=== PATIENT | female | born 1980 | race Caucasian/White ===

== ENCOUNTER 2018-11-03 10:31 | Inpatient (IN) ==
--- NOTE | 2018-11-03 10:46 | Emergency Department Note ---
ED Disposition Clinical Impression: Upper abdominal pain, Elevated liver enzymes, Dehydration Leukocytosis Qualifiers: Leukocytosis type: unspecified Qualified Code(s): D72.829 - Elevated white blood cell count, unspecified Disposition: Still a Patient Condition on Discharge: Good Referrals: Jb Gonzales MD [Primary Care Provider] - - Critical Care Critical Care Time: No Attestation: On , the high probability of a clinically significant, sudden or life threatening deterioration of the following system(s) required my full and direct attention, intervention and personal management. The time I documented below is in addition to time spent performing reported procedures but includes the following listed in this critical care notation. Medical Decision Making - Zach Inquiry Pt receiving controlled substance: Yes Zach was queried for this patient: Yes Reference #:: [id number] Risks and benefits of using a controlled substance: were not discussed with pt by me (on opiates chronically) Comment: 46 rxs. last rx 90 oxycodone 15mg on 10/24/18 Vital Signs: 11/03/18 10:40 Temperature 98.1 F Temperature Source Oral Pulse Rate [Left Radial] 112 H Respiratory Rate 20 Blood Pressure [Right Arm] 129/76 Blood Pressure Mean [Right Arm] 93 Blood Pressure Source [Right Arm] Automatic Cuff Blood Pressure Position [Right Arm] Sitting 02 Sat by Pulse Oximetry 98 Oxygen Delivery Method Room Air - Lab Data Lab Results 11/03/18 10:50: Urine Color [place], Urine Appearance Clear, Urine pH 6.5, Ur Specific [place] >= 1.030, Urine Protein 1+, Urine Glucose (UA) Negative, Urine Ketones Trace, Urine Blood Negative, Urine Nitrate Negative, Urine Bilirubin 2+ A, Urine Urobilinogen 2.0, Ur Leukocyte Esterase Negative, Urine RBC None, Urine WBC Occasional, Ur Squamous Epith Cells 3-5, Urine Bacteria 1+ 11/03/18 10:50: Urine Opiates Screen Positive H, Urine Methadone Screen Negative, Ur Barbituates Screen Negative, Ur Phencyclidine Scrn Negative, Ur Amphetamines Screen Negative, U Benzodiazepines Scrn Negative, Urine Cocaine Screen Negative, U Marijuana (THC) Screen Negative 11/03/18 11:00: WBC 17.6 H, RBC 4.47, Hgb 14.1, Hct 44.7, MCV 100.0 H, MCH 31.4 H, MCHC 31.4 L, RDW 15.2, Plt Count 269, MPV 10.0, Neut % (Auto) 78.0, Lymph % (Auto) 18.3, [place] % (Auto) 2.5, Eos % (Auto) 0.7, Baso % (Auto) 0.5, Neut # (Auto) 13.7 H, Lymph # (Auto) 3.2, [place] # (Auto) 0.4, Eos # (Auto) 0.1, Baso # (Auto) 0.1, Total Counted 100, Neutrophils % (Manual) 81 H, Lymphocytes % (Manual) 18, Monocytes % (Manual) 1 L, Platelet Estimate Normal, Macrocytosis 1+ 11/03/18 11:00: Sodium 140, Potassium 3.5, Chloride 106, Carbon Dioxide 20 L, Anion Gap 17.5 H, BUN 25 H, Creatinine 0.98, Estimated Creat Clear 58, Estimated GFR 65, Est GFR ( Amer) 78, Glucose 107 H, Calcium 8.2 L, Total Bilirubin 1.0, AST 287 H, ALT 297 H, Alkaline Phosphatase 90, Total Protein 7.5, Albumin 3.7, Globulin 3.8 H, Albumin/Globulin Ratio 1.0 L, Amylase 23 L, Lipase 98, T otal Valproic Acid 45.3 L Result diagrams: 11/03/18 11:00 11/03/18 11:00 Orders (Tests/Meds): ED MEDICATIONS Generic Name Dose Route Start Last Admin Trade Name Freq PRN Reason Stop Dose Admin Sodium Chloride 10 ml 11/03/18 10:46 Saline Flush 10ml Syringe IV 12/03/18 10:45 NEEDED PRN Maintain IV Site Discontinued Medications Generic Name Dose Route Start Last Admin Trade Name Freq PRN Reason Stop Dose Admin Morphine Sulfate 4 mg 11/03/18 13:09 Morphine 4mg/Ml Syringe IV 11/03/18 13:10 ONCE ONE Ondansetron HCl 4 mg 11/03/18 12:50 11/03/18 12:51 Zofran 4mg/2ml Vial IV 11/03/18 12:51 4 mg ONCE ONE Administration Promethazine HCl 12.5 mg 11/03/18 13:09 Phenergan 25mg/Ml 1ml Vial IV 11/03/18 13:10 ONCE ONE Sodium Chloride 1,000 ml 11/03/18 13:00 11/03/18 13:05 Sod Chlor 0.9% 1000ml Bag IV 11/03/18 13:01 1,000 ml BOLUS ONE Administration Sodium Chloride 25 ml 11/03/18 13:09 Sod Chlor 0.9% 25ml Bag IV 11/03/18 13:10 ONCE ONE ORDERS Category Date Time Status US gallbladder Stat Exams 11/03/18 11:12 Taken Hepatitis Panel (4) Routine Lab 11/03/18 12:29 Ordered Urinalysis and Microscopic Stat Lab 11/03/18 10:50 Ordered - CT Data CT Scan: Abdomen, Pelvis Time Received: 12:[address] Reviewed: Yes: I have viewed the radiologist's interpretation Findings Narrative: IMPRESSION: No acute abdominal or pelvic findings. Negative unenhanced CT scan of the abdomen and pelvis Dictated By: Marcello Medrano MD Signed By: <Electronically signed by Marcello Medrano MD in [place]> 11/03/18 1226 - US Data US Images: Gallbladder Findings Narrative: As per [facility] procedure, ultrasound report received from electroencephalographic technician: Negative - Physician Consults Physician Consulted: Clotilde Valverde NP for Dr. Gonzales, she spoke Dr. Gonzales Time: 13:07 Reason -: Admission Comment/Response: Agrees to admit the patient to the hospital. We discussed the patient's clinical information, including history, exam, laboratory and radiology results and ED course. Per hospital procedure, I will write temporary bridge inpatient orders on the patient. Specific orders requested by the admitt ing physician: IV hydration, low dose of interest pain medication Medical Decision Narrative: Records from [facility] emergency department reviewed. White blood cell co unt was 14.6. Transaminases were normal. Given several doses of morphine in the emergency department. She also requested Phenergan rather than Zofran. To liver enzymes with patient. She has no known history of hepatitis or any known exposures. General Adult HPI - General Stated complaint: stomach pain vomiting Time Seen by Provider: 11/03/18 10:45 - History of Present Illness HPI narrative: Planes of upper abdominal pain and vomiting for 14 days. States has not been able to hold any solid food down and very little liquid in that period of time. Has prior history of an ulcer which was cauterized 2 years ago. She says symptoms now are reminiscent. She called her web design intern last Thursday 1 week ago and was supposed to arrange follow-up. Has not done so. Went to the emergency room and [facility] on Thursday night and states that she had lab work done. States white blood cell count was slightly elevated. No imaging done. She says that she had an appointment with Dr. Gonzales today, which was the reason she has not followed up with gastroenterology Dr. Gonzales sent her from the office to the emergency room for workup. This was her first appointment with Dr. Gonzales. States last oral intake was 2 days ago. Patient on chronic pain medication, oxycodone 15 mg, but says she has not been able to hold it down. Requesting pain medication. - Related Data Home Medications Medication Instructions Recorded Confirmed albuterol sulfate 2.5 mg/3 mL 2.5 ml CONTINUOUS NEBULIZATION Q6 11/03/18 11/03/18 (0.083 %) solution for nebulization 30 Days #360 ml amitriptyline 50 mg tablet 50 mg PO HS 30 Days #30 tab 11/03/18 11/03/18 cetirizine 10 mg tablet 10 mg PO DAILY 30 Days #30 tab 11/03/18 11/03/18 dicyclomine 20 mg tablet 20 mg PO QID 30 Days #120 tab 11/03/18 11/03/18 divalproex 500 mg tablet,delayed 500 mg PO Q12H 30 Days #60 tab 11/03/18 11/03/18 release gabapentin 600 mg tablet 1,200 mg PO TID 30 Days #180 tab 11/03/18 11/03/18 lisinopril 10 mg tablet 10 mg PO DAILY 30 Days #30 tab 11/03/18 11/03/18 metoprolol tartrate 25 mg tablet 25 mg PO BID 30 Days #60 tab 11/03/18 11/03/18 montelukast 10 mg tablet 10 mg PO QHS 30 Days #30 tab 11/03/18 11/03/18 oxycodone 15 mg tablet 15 mg PO TID 30 Days #90 tab 11/03/18 11/03/18 pantoprazole 40 mg tablet,delayed 40 mg PO DAILY 30 Days #30 tab 11/03/18 11/03/18 release paroxetine 20 mg tablet 20 mg PO DAILY 30 Days #30 tab 11/03/18 11/03/18 polyethylene glycol 3350 17 17 gram PO DAILY 30 Days #510 g 11/03/18 11/03/18 gram/dose oral powder promethazine 25 mg tablet 25 mg PO ONCE PRN 30 Days #20 tab 11/03/18 11/03/18 quetiapine 200 mg tablet 200 mg PO QHS 30 Days #30 tab 11/03/18 11/03/18 ranitidine 150 mg tablet 150 mg PO BID 30 Days #60 tab 11/03/18 11/03/18 risperidone 3 mg tablet 3 mg PO DAILY 30 Days #30 tab 11/03/18 11/03/18 tizanidine 4 mg tablet 4 mg PO TID 30 Days #270 tab 11/03/18 11/03/18 trazodone 50 mg tablet 50 mg PO QHS 30 Days #30 tab 11/03/18 11/03/18 zolpidem 10 mg tablet 10 mg PO QHS 30 Days #30 tab 11/03/18 11/03/18 Allergies Allergy/AdvReac Type Severity Reaction Status Date / Time Pertussis Vaccines Allergy Mild Hives Verified 11/03/18 09:56 calcium [From DHEA] Allergy Verified 11/03/18 09:56 calcium carbonate [From DHEA] Allergy Verified 11/03/18 09:56 ciprofloxacin [From Cipro] Allergy escoto Verified 11/03/18 09:56 ibuprofen [From Motrin] Allergy Hives Verified 11/03/18 09:56 Penicillins Allergy Hives Verified 11/03/18 09:56 prasterone (DHEA) [From DHEA] Allergy Verified 11/03/18 09:56 sumatriptan [From Imitrex] Allergy Hives Verified 11/03/18 09:56 [facility] History - Hepatitis A Screen Attestation statement:: This patient has been screened for Hepatitis A risk factors. I have reviewed the patient's past medical history: Yes Medical History: Reports:: Anxiety, Asthma, Depression, Gastroesophageal Reflux Disease(GERD), Hypertension, Migraine Other Surgeries: Yes: , Hysterectomy-Total Amputation: No Fractures: Yes Comment: left leg fx,aleksandar placed - Social History Smoking Status: Current every day smoker Alcohol Intake: never Substance Use Type: denies use Occupational Status: disabled - Psychiatric History Pschychiatric History:: Reports:: Anxiety, Depression Family Hx:: Heart Attack, Hyperlipidemia, Diabetes ROS Obtained: Yes All systems reviewed & no additional complaints - Constitutional Constitutional: Denies fever(s) - Gastrointestinal Gastrointestingal: Reports: abdominal pain, vomiting Physical Exam - General General appearance: alert, in no apparent distress - Head Head exam: atraumatic, normocephalic - Eye Eye exam: Present: normal appearance, PERRL, EOMI - ENT ENT exam: Present: mucous membranes moist - Neck Neck exam: Present: normal inspection, trachea midline - Chest Chest inspection: Present: normal inspection, symmetric chest wall rise - Respiratory Respiratory exam: Present: normal lung sounds bilaterally. Absent: respiratory distress - Cardiovascular Cardiovascular exam: Present: regular rate, normal rhythm, normal heart sounds - Abdominal Exam Abdominal exam: Present: soft, tenderness. Absent: guarding, rebound, rigidity Abdominal tenderness: Present: RUQ, LUQ, epigastrium - Extremities Exam Extremities exam: Present: normal inspection - Neurological Exam Neurological exam: Present: alert, oriented X3 - Psychiatric Psychiatric exam: Present: normal affect, normal mood - Skin Skin exam: Present: warm, dry
[2018-11-03 10:54] LABS: Microscopic, Urine URINE MICROSCOPIC (MICROSCOPIC)
[2018-11-03 10:57] LABS: Appearance,Urine CLEAR (Clear); Blood, Urine Negative (Negative); Glucose,Urine (UA) Negative (Negative); Ketones,Urine TRACE (Negative); Leukocyte Esterase,Urine Negative (Negative); PH,Urine 6.5 (5.0-8.5); Protein,Urine 1+ (Negative); Specific Gravity, Urine >= 1.030 (1.005-1.030)
[2018-11-03 11:07] LABS: Amphetamine/Metha Screen,Urine Negative ng/mL (<1000); Barbiturates Screen,Urine Negative ng/mL (<200); Benzodiazepines Screen,Urine Negative ng/mL (<200); Cannabinoid Screen,Urine Negative ng/mL (<50); Cocaine Screen,Urine Negative ng/mL (<300); Methadone Screen,Urine Negative ng/mL (<300); Opiate Screen,Urine Positive ng/mL (<300); Phencyclidine Screen,Urine Negative ng/mL (<25)
[2018-11-03 11:14] LABS: Bilirubin,Urine 2+ (Negative)
[2018-11-03 11:14] LABS: Basophils # 0.1 K/mm3 (0-0.2); Basophils % 0.5 % (0.1-2.0); Eosinophils # 0.1 K/mm3 (0.0-0.4); Eosinophils % 0.7 % (0.1-12.0); Hematocrit 44.7 % (37.0-47.0); Hemoglobin 14.1 g/dL (12.2-16.2); Lymphocytes # 3.2 K/mm3 (0.7-4.5); Lymphocytes % 18.3 % (10-50); Mean Corpuscular HGB Conc 31.4 g/dL (31.8-35.4); Mean Corpuscular Hemoglobin 31.4 pg (27.0-31.2); Monocytes # 0.4 K/mm3 (0.1-1.0); Monocytes % 2.5 % (1.7-9.3); Neutrophils # 13.7 K/mm3 (1.8-7.8); Platelet Count 269 K/mm3 (142-424); Red Blood Count 4.47 M/mm3 (4.20-5.40); Red Cell Distribution Width 15.2 % (11.5-17.5); White Blood Count 17.6 K/mm3 (4.8-10.8)
[2018-11-03 11:24] LABS: Lymphocytes % 18 % (10-50); Macrocytosis 1+; Monocytes % 1 % (2-9); Neutrophils % 81 % (42-76); Total Cells Counted 100
[2018-11-03 11:30] LABS: Albumin Level 3.7 gm/dL (3.4-5.0); Anion Gap 17.5 mEq/L (5-15); Calcium 8.2 mg/dL (8.5-10.1); Globulin 3.8 gm/dl (1.3-3.2); Total Protein,Serum 7.5 gm/dL (6.4-8.2); Valproic Acid, (Depakene) 45.3 ug/mL (50-100)
[2018-11-03 11:41] LABS: Bacteria,Urine 1+ /lpf; WBC,Urine Occasional #/hpf (0-3)
[2018-11-03 11:43] LABS: Color,Urine Orange (Yellow)
[2018-11-03 11:54] LABS: Potassium 3.5 mmoL/L (3.5-5.1)
--- NOTE | 2018-11-03 15:27 | Pharmacy Consult Notes ---
[facility] Pharmacy VTE Monitoring - Patient Demographics Admission date: 11/03/18 Report Date: 11/03/18 Time: 15:27 Allergies/Adverse Reactions: Patient Allergies Pertussis Vaccines Allergy (Mild, Verified 11/03/18 09:56) Hives calcium [From DHEA] Allergy (Verified 11/03/18 09:56) calcium carbonate [From DHEA] Allergy (Verified 11/03/18 09:56) ciprofloxacin [From Cipro] Allergy (Verified 11/03/18 09:56) escoto ibuprofen [From Motrin] Allergy (Verified 11/03/18 09:56) Hives Penicillins Allergy (Verified 11/03/18 09:56) Hives prasterone (DHEA) [From DHEA] Allergy (Verified 11/03/18 09:56) sumatriptan [From Imitrex] Allergy (Verified 11/03/18 09:56) Hives Height: 1.52 m Weight: 103.561 kg Patient Problems: Current Active Problems Upper abdominal pain (Acute) Elevated liver enzymes (Acute) Leukocytosis (Acute) Dehydration (Acute) - VTE Risk Labs: VTE Related Lab Results Hgb 14.1 g/dL (12.2-16.2) 11/03/18 11:00 Hct 44.7 % (37.0-47.0) 11/03/18 11:00 Plt Count 269 K/mm3 (142-424) 11/03/18 11:00 BUN 25 mg/dL (7-18) H 11/03/18 11:00 Creatinine 0.98 mg/dL (0.55-1.02) 11/03/18 11:00 Estimated Creat Clear 58 mL/min (50-200) 11/03/18 11:00 VTE Score: 3 VTE Risk Level: Low Risk - Prophylaxis VTE Prophylaxis Ordered?: Yes Types of VTE Prophylaxis: TEDS Knee High Location of Applied Device: Bilateral Lower Extremeties
[2018-11-04 07:48] LABS: Basophils # 0.1 K/mm3 (0-0.2); Basophils % 0.4 % (0.1-2.0); Eosinophils # 0.1 K/mm3 (0.0-0.4); Eosinophils % 0.8 % (0.1-12.0); Hematocrit 40.6 % (37.0-47.0); Lymphocytes # 1.6 K/mm3 (0.7-4.5); Lymphocytes % 13.9 % (10-50); Mean Corpuscular HGB Conc 30.5 g/dL (31.8-35.4); Mean Corpuscular Hemoglobin 31.3 pg (27.0-31.2); Mean Corpuscular Volume 102.6 fl (81-99); Mean Platelet Volume 9.4 fl (7.4-10.4); Monocytes # 0.5 K/mm3 (0.1-1.0); Monocytes % 4.1 % (1.7-9.3); Neutrophils # 9.5 K/mm3 (1.8-7.8); Neutrophils % 80.8 % (37.0-80.0); Platelet Count 166 K/mm3 (142-424); Red Blood Count 3.95 M/mm3 (4.20-5.40); White Blood Count 11.8 K/mm3 (4.8-10.8)
[2018-11-04 07:56] LABS: Hemoglobin 12.5 g/dL (12.2-16.2)
[2018-11-04 08:11] LABS: Albumin Level 3.1 gm/dL (3.4-5.0); Albumin/Globulin Ratio 0.9 (1.1-1.8); Anion Gap 16.5 mEq/L (5-15); Bilirubin,Total 0.8 mg/dL (0.2-1.0); Globulin 3.4 gm/dl (1.3-3.2); Potassium 3.5 mmoL/L (3.5-5.1); Total Protein,Serum 6.5 gm/dL (6.4-8.2)
--- NOTE | 2018-11-04 09:29 | History & Physical Report ---
*Admission Date: 11/03/18 [facility] History Medical History: Reports:: Anxiety, Asthma, Depression, Gastroesophageal Reflux Disease(GERD), Hypertension, Migraine Denies:: Cancer, Diabetes Mellitus Type 1, Diabetes Mellitus Type 2, MRSA Have you ever received a pneumonia vaccine?: Yes Have you received a flu vaccine this season?: Yes Other Surgeries: Yes: , Hysterectomy-Total Amputation: No Fractures: Yes - *Social History Educational Level: Attended College Smoking Status: Current every day smoker Tobacco Type: cigarettes Alcohol Intake: never Substance Use Type: denies use Occupational Status: disabled Travel in the last 8 weeks: None - Psychiatric History Expresses thoughts of harming self/others: None Suicide Plan Description: No Plan Pschychiatric History:: Reports:: Anxiety, Depression *Family Hx:: Diabetes, Heart Attack, Hyperlipidemia, Hypertension Meds Home Medications Medication Instructions Recorded Confirmed Type albuterol sulfate 2.5 mg/3 mL 2.5 ml CONTINUOUS NEBULIZATION Q6 11/03/18 11/03/18 History (0.083 %) solution for nebulization 30 Days #360 ml amitriptyline 50 mg tablet 50 mg PO HS 30 Days #30 tab 11/03/18 11/03/18 History cetirizine 10 mg tablet 10 mg PO DAILY 30 Days #30 tab 11/03/18 11/03/18 History dicyclomine 20 mg tablet 20 mg PO QID 30 Days #120 tab 11/03/18 11/03/18 History divalproex 500 mg tablet,delayed 500 mg PO Q12H 30 Days #60 tab 11/03/18 11/03/18 History release gabapentin 600 mg tablet 1,200 mg PO TID 30 Days #180 tab 11/03/18 11/03/18 History lisinopril 10 mg tablet 10 mg PO DAILY 30 Days #30 tab 11/03/18 11/03/18 History metoprolol tartrate 25 mg tablet 25 mg PO BID 30 Days #60 tab 11/03/18 11/03/18 History montelukast 10 mg tablet 10 mg PO QHS 30 Days #30 tab 11/03/18 11/03/18 History oxycodone 15 mg tablet 15 mg PO TID 30 Days #90 tab 11/03/18 11/03/18 History pantoprazole 40 mg tablet,delayed 40 mg PO DAILY 30 Days #30 tab 11/03/18 11/03/18 History release paroxetine 20 mg tablet 20 mg PO DAILY 30 Days #30 tab 11/03/18 11/03/18 History polyethylene glycol 3350 17 17 gram PO DAILY 30 Days #510 g 11/03/18 11/03/18 History gram/dose oral powder promethazine 25 mg tablet 25 mg PO ONCE PRN 30 Days #20 tab 11/03/18 11/03/18 History quetiapine 200 mg tablet 200 mg PO QHS 30 Days #30 tab 11/03/18 11/03/18 History ranitidine 150 mg tablet 150 mg PO BID 30 Days #60 tab 11/03/18 11/03/18 History risperidone 3 mg tablet 3 mg PO DAILY 30 Days #30 tab 11/03/18 11/03/18 History tizanidine 4 mg tablet 4 mg PO TID 30 Days #270 tab 11/03/18 11/03/18 History trazodone 50 mg tablet 50 mg PO QHS 30 Days #30 tab 11/03/18 11/03/18 History zolpidem 10 mg tablet 10 mg PO QHS 30 Days #30 tab 11/03/18 11/03/18 History Allergies Allergy/AdvReac Type Severity Reaction Status Date / Time Pertussis Vaccines Allergy Mild Hives Verified 11/03/18 09:56 calcium [From DHEA] Allergy Verified 11/03/18 09:56 calcium carbonate [From DHEA] Allergy Verified 11/03/18 09:56 ciprofloxacin [From Cipro] Allergy escoto Verified 11/03/18 09:56 ibuprofen [From Motrin] Allergy Hives Verified 11/03/18 09:56 Penicillins Allergy Hives Verified 11/03/18 09:56 prasterone (DHEA) [From DHEA] Allergy Verified 11/03/18 09:56 sumatriptan [From Imitrex] Allergy Hives Verified 11/03/18 09:56 Exam Vital signs and Labs for Last 24 Hours: Temp Pulse Resp BP Pulse Ox 98.3 F 84 18 108/74 L 97 11/04/18 08:00 11/04/18 08:00 11/04/18 08:00 11/04/18 08:00 11/04/18 08:00 Laboratory Results - last 24 hr 11/03/18 10:50: Urine Color [place], Urine Appearance Clear, Urine pH 6.5, Ur Specific [place] >= 1.030, Urine Protein 1+, Urine Glucose (UA) Negative, Urine Ketones Trace, Urine Blood Negative, Urine Nitrate Negative, Urine Bilirubin 2+ A, Urine Urobilinogen 2.0, Ur Leukocyte Esterase Negative, Urine RBC None, Urine WBC Occasional, Ur Squamous Epith Cells 3-5, Urine Bacteria 1+ 11/03/18 10:50: Urine Opiates Screen Positive H, Urine Methadone Screen Negative, Ur Barbituates Screen Negative, Ur Phencyclidine Scrn Negative, Ur Amphetamines Screen Negative, U Benzodiazepines Scrn Negative, Urine Cocaine Screen Negative, U Marijuana (THC) Screen Negative 11/03/18 11:00: WBC 17.6 H, RBC 4.47, Hgb 14.1, Hct 44.7, MCV 100.0 H, MCH 31.4 H, MCHC 31.4 L, RDW 15.2, Plt Count 269, MPV 10.0, Neut % (Auto) 78.0, Lymph % (Auto) 18.3, [place] % (Auto) 2.5, Eos % (Auto) 0.7, Baso % (Auto) 0.5, Neut # (Auto) 13.7 H, Lymph # (Auto) 3.2, [place] # (Auto) 0.4, Eos # (Auto) 0.1, Baso # (Auto) 0.1, Total Counted 100, Neutrophils % (Manual) 81 H, Lymphocytes % (Manual) 18, Monocytes % (Manual) 1 L, Platelet Estimate Normal, Macrocytosis 1+ 11/03/18 11:00: Sodium 140, Potassium 3.5, Chloride 106, Carbon Dioxide 20 L, Anion Gap 17.5 H, BUN 25 H, Creatinine 0.98, Estimated Creat Clear 58, Estimated GFR 65, Est GFR ( Amer) 78, Glucose 107 H, Calcium 8.2 L, Total Bilirubin 1.0, AST 287 H, ALT 297 H, Alkaline Phosphatase 90, Total Protein 7.5, Albumin 3.7, Globulin 3.8 H, Albumin/Globulin Ratio 1.0 L, Amylase 23 L, Lipase 98, Total Valproic Acid 45.3 L 11/03/18 11:00: ESR 13 11/03/18 11:00: C-Reactive Protein 1.2 H 11/04/18 07:25: WBC 11.8 H D, RBC 3.95 L, Hgb 12.5 D, Hct 40.6, MCV 102.6 H, MCH 31.3 H, MCHC 30.5 L, RDW 15.0, Plt Count 166 D, MPV 9.4, Neut % (Auto) 80.8 H, Lymph % (Auto) 13.9, [place] % (Auto) 4.1, Eos % (Auto) 0.8, Baso % (Auto) 0.4, Neut # (Auto) 9.5 H, Lymph # (Auto) 1.6, [place] # (Auto) 0.5, Eos # (Auto) 0.1, Baso # (Auto) 0.1 11/04/18 07:25: Sodium 143, Potassium 3.5, Chloride 109 H, Carbon Dioxide 21, Anion Gap 16.5 H, BUN 19 H, Creatinine 0.88, Estimated Creat Clear 61, Estimated GFR 73, Est GFR ( Amer) 88, Glucose 83 D, Calcium 8.0 L, Total Bilirubin 0.8, AST 1661 H* D, ALT 1512 H*, Alkaline Phosphatase 88, Total Protein 6.5, Albumin 3.1 L D, Globulin 3.4 H, Albumin/Globulin Ratio 0.9 L I & O for Last 24 hours: Intake & Output 11/01/18 11/02/18 11/03/18 11/04/18 11:59 11:59 11:59 11:59 Intake Total 1680 / 1680 Balance 1680 / 1680 Weight 225 lb 228 lb 5 oz
[2018-11-04 11:17] LABS: Hepatitis B Core Antibody IgM Negative (Negative); Hepatitis B Surface Antigen Negative (Negative)
[2018-11-04 11:20] LABS: Hepatitis C Antibody <0.1 s/co ratio (0.0-0.9)
--- NOTE | 2018-11-04 13:17 | Consult Report ---
*Admission Date: 11/03/18 *Chief complaint: abdominal pain and nausea *History of present illness: This is a 37-year-old female seen in consultation from Dr. Gonzales for evaluation regarding abdominal pain. Over the past few weeks she has had significant pain in the upper abdomen with intermittent emesis. Please see forwarded copy of HPI from emergency department evaluation below: States has not been able to hold any solid food down and very little liquid in that period of time. Has prior history of an ulcer which was cauterized 2 years ago. She says symptoms now are reminiscent. She called her group home paraprofessional last Thursday 1 week ago and was supposed to arrange follow-up. Has not done so. Went to the emergency room and [facility] on Thursday night and states that she had lab work done. States white blood cell count was slightly elevated. No imaging done. She says that she had an appointment with Dr. Gonzales today, which was the reason she has not followed up with gastroenterology Dr. Gonzales sent her from the office to the emergency room for workup. This was her first appointment with Dr. Gonzales. States last oral intake was 2 days ago. Review of Systems - Constitutional Denies fever(s) - Eyes Denies change in vision - ENT Denies change in voice - *Cardiovascular Denies chest pain - *Respiratory Denies cough - *Gastrointestinal Reports abdominal pain, Reports nausea - Psychiatric Denies anxiety - Hematologic/Lymphatic Denies easy bleeding H History Medical History: Reports:: Anxiety, Asthma, Depression, Gastroesophageal Reflux Disease(GERD), Hypertension, Migraine Denies:: Cancer, Diabetes Mellitus Type 1, Diabetes Mellitus Type 2, MRSA Have you ever received a pneumonia vaccine?: Yes Have you received a flu vaccine this season?: Yes Other Surgeries: Yes: , Hysterectomy-Total Amputation: No Fractures: Yes - *Social History Educational Level: Attended College Smoking Status: Current every day smoker Tobacco Type: cigarettes Alcohol Intake: never Substance Use Type: denies use Occupational Status: disabled Travel in the last 8 weeks: None - Psychiatric History Expresses thoughts of harming self/others: None Suicide Plan Description: No Plan Pschychiatric History:: Reports:: Anxiety, Depression *Family Hx:: Diabetes, Heart Attack, Hyperlipidemia, Hypertension Meds Home Medications Medication Instructions Recorded Confirmed Type albuterol sulfate 2.5 mg/3 mL 2.5 ml CONTINUOUS NEBULIZATION Q6 11/03/18 11/03/18 History (0.083 %) solution for nebulization 30 Days #360 ml amitriptyline 50 mg tablet 50 mg PO HS 30 Days #30 tab 11/03/18 11/03/18 History cetirizine 10 mg tablet 10 mg PO DAILY 30 Days #30 tab 11/03/18 11/03/18 History dicyclomine 20 mg tablet 20 mg PO QID 30 Days #120 tab 11/03/18 11/03/18 History divalproex 500 mg tablet,delayed 500 mg PO Q12H 30 Days #60 tab 11/03/18 11/03/18 History release gabapentin 600 mg tablet 1,200 mg PO TID 30 Days #180 tab 11/03/18 11/03/18 History lisinopril 10 mg tablet 10 mg PO DAILY 30 Days #30 tab 11/03/18 11/03/18 History metoprolol tartrate 25 mg tablet 25 mg PO BID 30 Days #60 tab 11/03/18 11/03/18 History montelukast 10 mg tablet 10 mg PO QHS 30 Days #30 tab 11/03/18 11/03/18 History oxycodone 15 mg tablet 15 mg PO TID 30 Days #90 tab 11/03/18 11/03/18 History pantoprazole 40 mg tablet,delayed 40 mg PO DAILY 30 Days #30 tab 11/03/18 11/03/18 History release paroxetine 20 mg tablet 20 mg PO DAILY 30 Days #30 tab 11/03/18 11/03/18 History polyethylene glycol 3350 17 17 gram PO DAILY 30 Days #510 g 11/03/18 11/03/18 History gram/dose oral powder promethazine 25 mg tablet 25 mg PO ONCE PRN 30 Days #20 tab 11/03/18 11/03/18 History quetiapine 200 mg tablet 200 mg PO QHS 30 Days #30 tab 11/03/18 11/03/18 History ranitidine 150 mg tablet 150 mg PO BID 30 Days #60 tab 11/03/18 11/03/18 History risperidone 3 mg tablet 3 mg PO DAILY 30 Days #30 tab 11/03/18 11/03/18 History tizanidine 4 mg tablet 4 mg PO TID 30 Days #270 tab 11/03/18 11/03/18 History trazodone 50 mg tablet 50 mg PO QHS 30 Days #30 tab 11/03/18 11/03/18 History zolpidem 10 mg tablet 10 mg PO QHS 30 Days #30 tab 11/03/18 11/03/18 History Allergies Allergy/AdvReac Type Severity Reaction Status Date / Time Pertussis Vaccines Allergy Mild Hives Verified 11/03/18 09:56 calcium [From DHEA] Allergy Verified 11/03/18 09:56 calcium carbonate [From DHEA] Allergy Verified 11/03/18 09:56 ciprofloxacin [From Cipro] Allergy escoto Verified 11/03/18 09:56 ibuprofen [From Motrin] Allergy Hives Verified 11/03/18 09:56 Penicillins Allergy Hives Verified 11/03/18 09:56 prasterone (DHEA) [From DHEA] Allergy Verified 11/03/18 09:56 sumatriptan [From Imitrex] Allergy Hives Verified 11/03/18 09:56 Exam Vital signs and Labs for Last 24 Hours: Temp Pulse Resp BP Pulse Ox 98.3 F 84 18 108/74 L 97 11/04/18 08:00 11/04/18 08:00 11/04/18 08:00 11/04/18 08:00 11/04/18 08:00 Laboratory Results - last 24 hr 11/03/18 11:00: Hepatitis A IgM Ab Negative, Hep Bs Antigen Negative, Hep B Core IgM Ab Negative, Hepatitis C Antibody <0.1 11/03/18 11:00: ESR 13 11/03/18 11:00: C-Reactive Protein 1.2 H 11/04/18 07:25: WBC 11.8 H D, RBC 3.95 L, Hgb 12.5 D, Hct 40.6, MCV 102.6 H, MCH 31.3 H, MCHC 30.5 L, RDW 15.0, Plt Count 166 D, MPV 9.4, Neut % (Auto) 80.8 H, Lymph % (Auto) 13.9, [place] % (Auto) 4.1, Eos % (Auto) 0.8, Baso % (Auto) 0.4, Neut # (Auto) 9.5 H, Lymph # (Auto) 1.6, [place] # (Auto) 0.5, Eos # (Auto) 0.1, Baso # (Auto) 0.1 11/04/18 07:25: Sodium 143, Potassium 3.5, Chloride 109 H, Carbon Dioxide 21, Anion Gap 16.5 H, BUN 19 H, Creatinine 0.88, Estimated Creat Clear 61, Estimated GFR 73, Est GFR ( Amer) 88, Glucose 83 D, Calcium 8.0 L, Total Bilirubin 0.8, AST 1661 H* D, ALT 1512 H*, Alkaline Phosphatase 88, Total Protein 6.5, Albumin 3.1 L D, Globulin 3.4 H, Albumin/Globulin Ratio 0.9 L I & O for Last 24 hours: Intake & Output 11/02/18 11/03/18 11/04/18 11/05/18 11:59 11:59 11:59 11:59 Intake Total 1680 / 1680 Balance 1680 / 1680 Weight 225 lb 228 lb 5 oz - Constitutional no acute distress, somnolent - *Routine Cardiovascular Exam Present: RRR - *Routine Abdominal Exam Present: soft, tenderness Comments: upper abd Results - Labs 11/04/18 07:25 11/04/18 07:25 Laboratory Results - last 24 hr 11/03/18 11:00: Hepatitis A IgM Ab Negative, Hep Bs Antigen Negative, Hep B Core IgM Ab Negative, Hepatitis C Antibody <0.1 11/03/18 11:00: ESR 13 11/03/18 11:00: C-Reactive Protein 1.2 H 11/04/18 07:25: WBC 11.8 H D, RBC 3.95 L, Hgb 12.5 D, Hct 40.6, MCV 102.6 H, MCH 31.3 H, MCHC 30.5 L, RDW 15.0, Plt Count 166 D, MPV 9.4, Neut % (Auto) 80.8 H, Lymph % (Auto) 13.9, [place] % (Auto) 4.1, Eos % (Auto) 0.8, Baso % (Auto) 0.4, Neut # (Auto) 9.5 H, Lymph # (Auto) 1.6, [place] # (Auto) 0.5, Eos # (Auto) 0.1, Baso # (Auto) 0.1 11/04/18 07:25: Sodium 143, Potassium 3.5, Chloride 109 H, Carbon Dioxide 21, Anion Gap 16.5 H, BUN 19 H, Creatinine 0.88, Estimated Creat Clear 61, Estimated GFR 73, Est GFR ( Amer) 88, Glucose 83 D, Calcium 8.0 L, Total Bilirubin 0.8, AST 1661 H* D, ALT 1512 H*, Alkaline Phosphatase 88, Total Protein 6.5, Albumin 3.1 L D, Globulin 3.4 H, Albumin/Globulin Ratio 0.9 L - Imaging CT scan - abdomen: report reviewed, image reviewed CT scan - pelvis: report reviewed, image reviewed US - abdomen: report reviewed, image reviewed Assessment and Plan (1) Elevated liver enzymes Current visit: Yes Status: Acute Category: Medical Code(s): R74.8 - Abnormal levels of other serum enzymes Hepatitis panel pending (2) Leukocytosis Current visit: Yes Status: Acute Qualifiers: Leukocytosis type: unspecified Qualified Code(s): D72.829 - Elevated white blood cell count, unspecified Category: Medical Code(s): D72.829 - Elevated white blood cell count, unspecified (3) Upper abdominal pain Current visit: Yes Status: Acute Category: Medical Code(s): R10.10 - Upper abdominal pain, unspecified (4) Hx of peptic ulcer Current visit: No Status: Acute Category: Medical Code(s): Z87.11 - Personal history of peptic ulcer disease The patient will likely benefit from esophagogastroduodenoscopy once she begins to recover from what appears to be some form of acute hepatitis. Twice daily PPI and twice daily H2 blockade for now (may change dosing schedule after esophagogastroduodenoscopy) Begin Carafate Close outpatient follow-up
--- NOTE | 2018-11-04 15:31 | H&P/Discharge Summary ---
General - General Admission date:: 11/03/18 Discharge date: 11/04/18 *Admission Date: 11/03/18 *Chief complaint: abd pain *History of present illness: 37-year-old female seen in office for abdominal pain. Pt states over the past few weeks she has had significant pain in the upper abdomen with intermittent emesis. Pt states has not been able to hold any solid food down and very little liquid in that period of time. Hx of an ulcer which was cauterized 2 years ago. She says symptoms now are reminiscent. She called her medical affairs specialist last Thursday 1 week ago and was supposed to arrange follow-up. Has not done so. Went to the emergency room and [facility] on Thursday night. Pt admitted for futher work up and surgery consult. [facility] History I have reviewed the patient's past medical history: Yes Medical History: Reports:: Anxiety, Asthma, Depression, Gastroesophageal Reflux Disease(GERD), Hypertension, Migraine Denies:: Cancer, Diabetes Mellitus Type 1, Diabetes Mellitus Type 2, MRSA Have you ever received a pneumonia vaccine?: Yes Have you received a flu vaccine this season?: Yes Other Surgeries: Yes: , Hysterectomy-Total Amputation: No Fractures: Yes - *Social History Educational Level: Attended College Smoking Status: Current every day smoker Tobacco Type: cigarettes Alcohol Intake: never Substance Use Type: denies use Occupational Status: disabled Travel in the last 8 weeks: None - Psychiatric History Expresses thoughts of harming self/others: None Suicide Plan Description: No Plan Pschychiatric History:: Reports:: Anxiety, Depression *Family Hx:: Diabetes, Heart Attack, Hyperlipidemia, Hypertension Review of Systems - Review of Systems Review of systems:: pertinent systems reviewed and negative unless documented below - Constitutional Denies fever(s) - Eyes Denies blurry vision - ENT Denies change in voice - *Respiratory Denies cough, Denies wheezing - *Gastrointestinal Reports abdominal pain, Reports cramping, Reports nausea, Reports vomiting - *Genitourinary Denies difficulty urinating - *Musculoskeletal Denies back pain - Integumentary/Breasts Denies rash - *Neurologic Denies abnormal movements - Psychiatric Denies anxiety - Endocrine Denies flushing - Hematologic/Lymphatic Denies enlarged lymph nodes Exam Vital signs and Labs for Last 24 Hours: Temp Pulse Resp BP Pulse Ox 98.3 F 88 18 108/74 L 97 11/04/18 08:00 11/04/18 13:42 11/04/18 08:00 11/04/18 08:00 11/04/18 08:00 Laboratory Results - last 24 hr 11/03/18 11:00: Hepatitis A IgM Ab Negative, Hep Bs Antigen Negative, Hep B Core IgM Ab Negative, Hepatitis C Antibody <0.1 11/03/18 11:00: ESR 13 11/03/18 11:00: C-Reactive Protein 1.2 H 11/04/18 07:25: WBC 11.8 H D, RBC 3.95 L, Hgb 12.5 D, Hct 40.6, MCV 102.6 H, MCH 31.3 H, MCHC 30.5 L, RDW 15.0, Plt Count 166 D, MPV 9.4, Neut % (Auto) 80.8 H, Lymph % (Auto) 13.9, [place] % (Auto) 4.1, Eos % (Auto) 0.8, Baso % (Auto) 0.4, Neut # (Auto) 9.5 H, Lymph # (Auto) 1.6, [place] # (Auto) 0.5, Eos # (Auto) 0.1, Baso # (Auto) 0.1 11/04/18 07:25: Sodium 143, Potassium 3.5, Chloride 109 H, Carbon Dioxide 21, Anion Gap 16.5 H, BUN 19 H, Creatinine 0.88, Estimated Creat Clear 61, Estimated GFR 73, Est GFR ( Amer) 88, Glucose 83 D, Calcium 8.0 L, Total Bilirubin 0.8, AST 1661 H* D, ALT 1512 H*, Alkaline Phosphatase 88, Total Protein 6.5, Albumin 3.1 L D, Globulin 3.4 H, Albumin/Globulin Ratio 0.9 L I & O for Last 24 hours: Intake & Output 11/02/18 11/03/18 11/04/18 11/05/18 11:59 11:59 11:59 11:59 Intake Total 1680 / 1680 Balance 1680 / 1680 Weight 225 lb 228 lb 5 oz - Constitutional no acute distress - *Routine HEENT Exam Head: Present: normocephalic Eye: Present: PERRL ENT: Present: mucous membranes moist - *Routine Neck Exam Present: supple. Absent: lymphadenopathy - *Routine Respiratory Exam Present: CTA bilaterally - *Routine Cardiovascular Exam Present: RRR - *Routine Abdominal Exam Present: soft, normoactive bowel sounds, tenderness - *Routine Extremities Exam Absent: cyanosis, clubbing, edema - *Routine Skin Exam Present: warm. Absent: rash - *Routine Neurological Exam Present: alert, oriented X3 - Routine Psychiatric Exam Present: normal affect Hospital Course Hospital Course: upper gi: IMPRESSION: Gastroesophageal reflux otherwise negative barium swallow. barrium swallow: IMPRESSION: Gastroesophageal reflux otherwise negative upper GI will dc home with Twice daily PPI and twice daily H2 blockade for now (may change dosing schedule after esophagogastroduodenoscopy) Begin Carafate edg as outpt follow up in office 1 week Results Labs on day of discharge: Labs from last 24 hours 11/04/18 11/04/18 11/03/18 07:25 07:25 11:00 WBC 11.8 H D RBC 3.95 L Hgb 12.5 D Hct 40.6 MCV 102.6 H MCH 31.3 H MCHC 30.5 L RDW 15.0 Plt Count 166 D MPV 9.4 Neut % (Auto) 80.8 H Lymph % (Auto) 13.9 [place] % (Auto) 4.1 Eos % (Auto) 0.8 Baso % (Auto) 0.4 Neut # (Auto) 9.5 H Lymph # (Auto) 1.6 [place] # (Auto) 0.5 Eos # (Auto) 0.1 Baso # (Auto) 0.1 ESR Sodium 143 Potassium 3.5 Chloride 109 H Carbon Dioxide 21 Anion Gap 16.5 H BUN 19 H Creatinine 0.88 Estimated Creat Clear 61 Estimated GFR 73 Est GFR ( Amer) 88 Glucose 83 D Calcium 8.0 L Total Bilirubin 0.8 AST 1661 H* D ALT 1512 H* Alkaline Phosphatase 88 C-Reactive Protein 1.2 H Total Protein 6.5 Albumin 3.1 L D Globulin 3.4 H Albumin/Globulin Ratio 0.9 L Hepatitis A IgM Ab Hep Bs Antigen Hep B Core IgM Ab Hepatitis C Antibody 11/03/18 11/03/18 11:00 11:00 WBC RBC Hgb Hct MCV MCH MCHC RDW Plt Count MPV Neut % (Auto) Lymph % (Auto) [place] % (Auto) Eos % (Auto) Baso % (Auto) Neut # (Auto) Lymph # (Auto) [place] # (Auto) Eos # (Auto) Baso # (Auto) ESR 13 Sodium Potassium Chloride Carbon Dioxide Anion Gap BUN Creatinine Estimated Creat Clear Estimated GFR Est GFR ( Amer) Glucose Calcium Total Bilirubin AST ALT Alkaline Phosphatase C-Reactive Protein Total Protein Albumin Globulin Albumin/Globulin Ratio Hepatitis A IgM Ab Negative Hep Bs Antigen Negative Hep B Core IgM Ab Negative Hepatitis C Antibody <0.1 - Additional Comments rounded with april all orders per april DS: Diagnosis - Discharge Diagnosis (1) Elevated liver enzymes Status: Acute (2) Leukocytosis Status: Acute (3) Upper abdominal pain Status: Acute (4) Hx of peptic ulcer Status: Acute Discharge Medications - Medications for Discharge Home Medication List at Discharge: No Action amitriptyline 50 mg tablet 50 mg PO HS 30 Days #30 tab lisinopril 10 mg tablet 10 mg PO DAILY 30 Days #30 tab montelukast 10 mg tablet 10 mg PO HS 30 Days #30 tab zolpidem 10 mg tablet 10 mg PO HS 30 Days #30 tab dicyclomine 20 mg tablet 20 mg PO QID 30 Days #120 tab divalproex 500 mg tablet,delayed release 500 mg PO BID 30 Days #60 tab gabapentin 600 mg tablet 1,200 mg PO TID 30 Days #180 tab metoprolol tartrate 25 mg tablet 25 mg PO BID 30 Days #60 tab oxycodone 15 mg tablet 15 mg PO TID 30 Days #90 tab pantoprazole 40 mg tablet,delayed release 40 mg PO DAILY 30 Days #30 tab polyethylene glycol 3350 17 gram/dose oral powder 17 gram PO DAILY 30 Days #510 g quetiapine 200 mg tablet 200 mg PO HS 30 Days #30 tab risperidone 3 mg tablet 3 mg PO DAILY 30 Days #30 tab tizanidine 4 mg tablet 4 mg PO TID 30 Days #270 tab trazodone 50 mg tablet 50 mg PO HSP PRN 30 Days #30 tab PRN Reason: Sleep ranitidine 150 mg tablet 150 mg PO BID 30 Days #60 tab cetirizine 10 mg tablet 10 mg PO DAILY 30 Days #30 tab albuterol sulfate 2.5 mg/3 mL (0.083 %) solution for nebulization 2.5 ml CONTINUOUS NEBULIZATION Q6 30 Days #360 ml paroxetine 20 mg tablet 20 mg PO DAILY 30 Days #30 tab Disposition Disposition: Home, Self-Care
== END 2018-11-04 19:10 | disposition home or self-care (01) | DRG 392 ==
LOC: ER 10:31 → 2ND 13:23
PROVIDERS: ADMIT Emergency Medicine; ATTEND Emergency Medicine
CPT/HCPCS: J2405

== ENCOUNTER 2019-01-05 11:01 | Observation (INO) ==
--- NOTE | 2019-01-05 11:17 | Emergency Department Note ---
ED Disposition Clinical Impression: Atypical chest pain Hypotension arterial Qualifiers: Hypotension type: unspecified hypotension type Qualified Code(s): I95.9 - Hypot ension, unspecified Disposition: Admitted as Observation Condition on Discharge: Fair Referrals: Provider,Referral, [Referring] - - Critical Care Critical Care Time: Yes Attestation: On , the high probability of a clinically significant, sudden or life t hreatening deterioration of the following system(s) required my full and direct attention, intervention and personal management. The time I documented below is in addition to time spent performing reported procedures but includes the following listed in this critical care notation. Total Critical Care Time: 30 Vital system(s) involved:: Circulatory Failure My critical care processes included: Assessment & monitoring of V/S, Initial and Re-exams, Data Review/Interpretation, Coordinating Care, Medication Orders and management, Documentation Medical Decision Making - Zach Inquiry Pt receiving controlled substance: No Vital Signs: 01/05/19 11:02 01/05/19 11:09 01/05/19 12:02 Temperature 98.2 F Temperature Source Oral Pulse Rate 83 Pulse Rate [Right Apical] 87 82 Respiratory Rate 15 Blood Pressure [Left Arm] Blood Pressure [Right Arm] 125/46 L 79/46 L Blood Pressure Mean [Left Arm] Blood Pressure Mean [Right Arm] 72 57 Blood Pressure Source [Left Arm] Blood Pressure Source [Right Arm] Automatic Cuff Automatic Cuff Blood Pressure Position [Left Arm] Blood Pressure Position [Right Arm] Sitting Sitting 02 Sat by Pulse Oximetry 100 96 Oxygen Delivery Method Room Air Room Air 01/05/19 12:10 01/05/19 12:11 01/05/19 12:41 Temperature Temperature Source Pulse Rate Pulse Rate [Right Apical] 82 78 Respiratory Rate Blood Pressure [Left Arm] Blood Pressure [Right Arm] 95/43 L 95/43 L 105/70 L Blood Pressure Mean [Left Arm] Blood Pressure Mean [Right Arm] 60 60 81 Blood Pressure Source [Left Arm] Blood Pressure Source [Right Arm] Manual Cuff/ Auscultation Automatic Cuff Manual Cuff/ Palpation Blood Pressure Position [Left Arm] Blood Pressure Position [Right Arm] Sitting Sitting 02 Sat by Pulse Oximetry 96 98 Oxygen Delivery Method Room Air Room Air 01/05/19 13:06 01/05/19 13:43 01/05/19 13:46 Temperature Temperature Source Pulse Rate Pulse Rate [Right Apical] 73 83 81 Respiratory Rate Blood Pressure [Left Arm] 88/48 L Blood Pressure [Right Arm] 100/82 L 94/42 L Blood Pressure Mean [Left Arm] 61 Blood Pressure Mean [Right Arm] 88 59 Blood Pressure Source [Left Arm] Manual Cuff/ Auscultation Blood Pressure Source [Right Arm] Manual Cuff/ Auscultation Manual Cuff/ Auscultation Blood Pressure Position [Left Arm] Supine Blood Pressure Position [Right Arm] Supine Supine Supine 02 Sat by Pulse Oximetry 97 99 98 Oxygen Delivery Method Room Air Room Air Room Air 01/05/19 14:13 Temperature Temperature Source Pulse Rate Pulse Rate [Right Apical] 82 Respiratory Rate Blood Pressure [Left Arm] 83/46 L Blood Pressure [Right Arm] Blood Pressure Mean [Left Arm] 58 Blood Pressure Mean [Right Arm] Blood Pressure Source [Left Arm] Automatic Cuff Blood Pressure Source [Right Arm] Blood Pressure Position [Left Arm] Supine Blood Pressure Position [Right Arm] 02 Sat by Pulse Oximetry 99 Oxygen Delivery Method Room Air - Lab Data Lab Results 01/05/19 11:10: WBC 17.3 H, RBC 4.14 L, Hgb 13.1, Hct 42.1, MCV 101.8 H, MCH 31.6 H, MCHC 31.0 L, RDW 17.4, Plt Count 478 H, MPV 8.0, Neut % (Auto) 78.7, Lymph % (Auto) 16.4, [place] % (Auto) 3.6, Eos % (Auto) 1.1, Baso % (Auto) 0.2, Neut # (Auto) 13.6 H, Lymph # (Auto) 2.8, [place] # (Auto) 0.6, Eos # (Auto) 0.2, Baso # (Auto) 0.0, Total Counted 100, Neutrophils % (Manual) 81 H, Lymphocytes % (Manual) 15, Monocytes % (Manual) 3, Eosinophils % (Manual) 1, Platelet Estimate Normal, Macrocytosis 1+ 01/05/19 11:10: Sodium 141, Potassium 3.5, Chloride 108 H, Carbon Dioxide 18 L, Anion Gap 18.5 H, BUN 25 H, Creatinine 1.22 H, Estimated Creat Clear 46, Estimated GFR 50 L, Est GFR ( Amer) 60, Glucose 73 L, Calcium 8.9, Troponin I < 0.02 01/05/19 11:10: D-Dimer 39.1 01/05/19 11:10: Lipase 156 01/05/19 12:41: Lactate 1.5 Result diagrams: 01/05/19 11:10 01/05/19 11:10 Orders (Tests/Meds): ED MEDICATIONS Generic Name Dose Route Start Last Admin Trade Name Freq PRN Reason Stop Dose Admin Sodium Chloride 1,000 mls @ 999 mls/hr 01/05/19 11:50 01/05/19 11:55 Sod Chlor 0.9% 1000ml Bag IV 01/05/19 12:50 999 mls/hr .Q1H1M CAMILO Administration Nitroglycerin 0.4 mg 01/05/19 11:13 Nitrostat 0.4mg Sl Tablet SL 01/06/19 11:13 Q5MINP PRN Chest Pain Sodium Chloride 10 ml 01/05/19 11:13 Saline Flush 10ml Syringe IV 02/04/19 11:12 NEEDED PRN Maintain IV Site Discontinued Medications Generic Name Dose Route Start Last Admin Trade Name Freq PRN Reason Stop Dose Admin Aspirin 324 mg 01/05/19 11:13 01/05/19 11:36 Aspirin 81mg Chewable Tablet PO 01/05/19 11:14 324 mg ONCE ONE Administration Sodium Chloride 1,000 ml 01/05/19 13:46 01/05/19 13:52 Sod Chlor 0.9% 1000ml Bag IV 01/05/19 13:47 1,000 ml BOLUS ONE Administration ORDERS Category Date Time Status Troponin I Q3H Lab 01/05/19 14:15 Ordered Troponin I Q3H Lab 01/05/19 17:15 Ordered Urinalysis and Microscopic Stat Lab 01/05/19 12:13 Ordered Blood Culture Stat Micro 01/05/19 12:41 Received - Radiology Data #1 Image(s): Chest Image Reviewed: Yes I reviewed the patient's radiology image Preliminary Findings: Normal/NAD - ECG Data Tracing #1 EKG interpreted by Alejandro Bynum MD: Rhythm: sinus Rate: 94 Pel[place]: normal Ectopy: none Conduction: QTc [address] Segment Changes: none T Wave Changes: none Q Waves: none No evidence of acute ischemia or injury - Physician Consults Physician Consulted: Christian Time: 13:30 Reason -: Admission, Pt condition Comment/Response: We discussed the patient's clinical information, including history, exam, laboratory and radiology results and ED course. Agrees to admit the patient to the hospital. Per hospital procedure, I will write temporary bridge inpatient orders on the patient. Specific orders requested by the admitting physician: Continue IV fluids General Adult HPI - General Chief complaint: Chest Pain Stated complaint: chest pain Time Seen by Provider: 01/05/19 11:17 Mode of Arrival: Ambulatory Limitations: No Limitations Description of Symptoms (Recalled from ER Triage Doc. by RN): Pt arrived to the ED with c/o Chest pain for a few days. PT states she has starte a new med and thinks it might be related to that. - History of Present Illness HPI narrative: Complains of left parasternal chest pain since 12/28/18, constant. Worsens with cough. Has had a cough, but no sputum production or hemoptysis. No fever. No leg pain or swelling. Has had dizziness which she describes as "the room spinning" consistent with vertigo for the past couple of days. Dizziness is worse with standing. States the pain started after she had a cardiac echo at [facility] for evaluation of patent foramen ovale. She had trans-pulmonary ultrasound enhancing agent and agitated saline administered for the cardiac echo. She is supposed to follow-up with a film coater to [facility] to discuss "plugging" the PFO. Also states that she has had a migraine ever since that procedure. Has chronic migraines. She is seen at the neurology clinic at [facility]. She was seen there yesterday and given Botox injections. Also given an injection of Toradol and Phenergan. States she still has a migraine. Record reviewed. Recent admission at [facility] on November 29 - December 07. Record reviewed. Presented with a leg injury from a fall, but became hypotensive in the emergency room. - Related Data Home Medications Medication Instructions Recorded Confirmed gabapentin 600 mg tablet 1,200 mg PO TID 30 Days #180 tab 11/03/18 12/14/18 oxycodone 15 mg tablet 15 mg PO TID 30 Days #90 tab 11/03/18 12/14/18 paroxetine 20 mg tablet 20 mg PO DAILY 30 Days #30 tab 11/03/18 12/14/18 quetiapine 200 mg tablet 200 mg PO HS 30 Days #30 tab 11/03/18 12/14/18 tizanidine 4 mg tablet 4 mg PO TID 30 Days #270 tab 11/03/18 12/14/18 dicyclomine 20 mg tablet 20 mg PO QID 12/14/18 12/14/18 propranolol 40 mg tablet 40 mg PO DAILY tab 12/14/18 12/14/18 Previous Rx's Medication Instructions Recorded Famotidine [Pepcid 20mg Tablet] 40 mg PO BID tab 11/04/18 cetirizine 10 mg tablet 10 mg PO DAILY #90 tab 12/14/18 escitalopram 10 mg tablet 10 mg PO DAILY #90 tab 12/14/18 lisinopril 10 mg tablet 10 mg PO DAILY #90 tab 12/14/18 metoprolol tartrate 25 mg tablet 25 mg PO BID #180 tab 12/14/18 montelukast 10 mg tablet 10 mg PO HS #90 tab 12/14/18 zolpidem 10 mg tablet 10 mg PO HS 30 Days #30 tab 12/17/18 Allergies Allergy/AdvReac Type Severity Reaction Status Date / Time Pertussis Vaccines Allergy Mild Hives Verified 12/14/18 14:55 calcium [From DHEA] Allergy Verified 12/14/18 14:55 calcium carbonate [From DHEA] Allergy Verified 12/14/18 14:55 ciprofloxacin [From Cipro] Allergy escoto Verified 12/14/18 14:55 ibuprofen [From Motrin] Allergy Hives Verified 12/14/18 14:55 Penicillins Allergy Hives Verified 12/14/18 14:55 prasterone (DHEA) [From DHEA] Allergy Verified 12/14/18 14:55 sumatriptan [From Imitrex] Allergy Hives Verified 12/14/18 14:55 [facility] History - Hepatitis A Screen Drug use history?: No High risk sexual behaviors?: No History of sexually transmitted infection?: No Currently employed?: No Childcare worker?: No Do you have indoor plumbing?: Yes Do you have electricity?: Yes Attestation statement:: This patient has been screened for Hepatitis A risk factors. I have reviewed the patient's past medical history: Yes Medical History: Reports:: Anxiety, Asthma, Depression, Gastroesophageal Reflux Disease(GERD), Hypertension, Migraine Denies:: Cancer, Diabetes Mellitus Type 1, Diabetes Mellitus Type 2, MRSA Other Medical History: Reports: Other (Pancreatitis, hemachromatosis, anemia, leukocytosis, PFO) Other Surgeries: Yes: , Hysterectomy-Total Amputation: No Fractures: Yes Comment: left leg fx,aleksandar placed - Social History Smoking Status: Current every day smoker Tobacco Type: cigarettes # Packs/Day (cigarettes): 1 Alcohol Intake: never Substance Use Type: denies use Occupational Status: disabled - Psychiatric History Expresses thoughts of harming self/others: None Suicide Plan Description: No Plan Pschychiatric History:: Reports:: Anxiety, Bipolar Disorder, Depression Family Hx:: Diabetes, Heart Attack, Hyperlipidemia, Hypertension ROS Obtained: Yes All systems reviewed & no additional complaints - Constitutional Constitutional: Denies fever(s) - Cardiovascular Cardiovascular: Reports chest pain - Respiratory Respiratory: Yes cough, Yes non-productive cough, Yes dyspnea (Slight), No excessive phlegm production, No coughing up blood - Gastrointestinal Gastrointestingal: Reports: vomiting. Denies: abdominal pain, diarrhea - Neurologic Neurologic: Reports headache(s) Physical Exam - General General appearance: alert, in no apparent distress - Head Head exam: atraumatic, normocephalic - Eye Eye exam: Present: normal appearance, PERRL, EOMI - ENT ENT exam: Present: mucous membranes moist - Neck Neck exam: Present: normal inspection, full ROM - Chest Chest inspection: Present: normal inspection, symmetric chest wall rise, tenderness (Left parasternal, reproducible) - Respiratory Respiratory exam: Present: normal lung sounds bilaterally. Absent: respiratory distress - Cardiovascular Cardiovascular exam: Present: regular rate, normal rhythm, normal heart sounds - Abdominal Exam Abdominal exam: Present: soft. Absent: distention, tenderness - Extremities Exam Extremities exam: Present: normal inspection, full ROM. Absent: tenderness, calf tenderness - Neurological Exam Neurological exam: Present: alert, oriented X3 - Psychiatric Psychiatric exam: Present: normal affect, normal mood - Skin Skin exam: Present: warm, dry
[2019-01-05 11:23] LABS: Basophils % 0.2 % (0.1-2.0); Eosinophils # 0.2 K/mm3 (0.0-0.4); Eosinophils % 1.1 % (0.1-12.0); Hematocrit 42.1 % (37.0-47.0); Hemoglobin 13.1 g/dL (12.2-16.2); Lymphocytes # 2.8 K/mm3 (0.7-4.5); Lymphocytes % 16.4 % (10-50); Mean Corpuscular Hemoglobin 31.6 pg (27.0-31.2); Mean Corpuscular Volume 101.8 fl (81-99); Monocytes # 0.6 K/mm3 (0.1-1.0); Monocytes % 3.6 % (1.7-9.3); Neutrophils # 13.6 K/mm3 (1.8-7.8); Neutrophils % 78.7 % (37.0-80.0); Platelet Count 478 K/mm3 (142-424); Red Blood Count 4.14 M/mm3 (4.20-5.40); Red Cell Distribution Width 17.4 % (11.5-17.5); White Blood Count 17.3 K/mm3 (4.8-10.8)
[2019-01-05 11:36] LABS: Anion Gap 18.5 mEq/L (5-15); Blood Urea Nitrogen 25 mg/dL (7-18); Calcium 8.9 mg/dL (8.5-10.1); Carbon Dioxide 18 mmol/L (21.0-32.0); Chloride 108 mmol/L (98-107); Glucose 73 mg/dL (74-106); Sodium 141 mmol/L (136-145)
[2019-01-05 11:40] LABS: Potassium 3.5 mmoL/L (3.5-5.1)
[2019-01-05 11:49] LABS: Eosinophils % 1 % (0-3); Lymphocytes % 15 % (10-50); Macrocytosis 1+; Monocytes % 3 % (2-9); Neutrophils % 81 % (42-76); Total Cells Counted 100
[2019-01-06 06:50] LABS: Basophils % 0.2 % (0.1-2.0); Eosinophils # 0.1 K/mm3 (0.0-0.4); Eosinophils % 1.4 % (0.1-12.0); Hematocrit 34.3 % (37.0-47.0); Lymphocytes # 4.2 K/mm3 (0.7-4.5); Lymphocytes % 41.8 % (10-50); Mean Corpuscular HGB Conc 31.4 g/dL (31.8-35.4); Mean Corpuscular Hemoglobin 32.1 pg (27.0-31.2); Mean Platelet Volume 7.8 fl (7.4-10.4); Monocytes # 0.4 K/mm3 (0.1-1.0); Monocytes % 4.1 % (1.7-9.3); Neutrophils # 5.3 K/mm3 (1.8-7.8); Neutrophils % 52.5 % (37.0-80.0); Platelet Count 284 K/mm3 (142-424); Red Blood Count 3.37 M/mm3 (4.20-5.40); Red Cell Distribution Width 17.7 % (11.5-17.5)
[2019-01-06 07:17] LABS: Anion Gap 17.1 mEq/L (5-15); Potassium 3.1 mmoL/L (3.5-5.1)
[2019-01-06 07:37] LABS: Hemoglobin 11.1 g/dL (12.2-16.2)
--- NOTE | 2019-01-06 07:45 | Pharmacy Consult Notes ---
[facility] Pharmacy VTE Monitoring - Patient Demographics Admission date: 01/05/19 Report Date: 01/06/19 Time: 07:44 Allergies/Adverse Reactions: Patient Allergies Pertussis Vaccines Allergy (Mild, Verified 12/14/18 14:55) Hives calcium [From DHEA] Allergy (Verified 12/14/18 14:55) calcium carbonate [From DHEA] Allergy (Verified 12/14/18 14:55) ciprofloxacin [From Cipro] Allergy (Verified 12/14/18 14:55) escoto ibuprofen [From Motrin] Allergy (Verified 12/14/18 14:55) Hives Penicillins Allergy (Verified 12/14/18 14:55) Hives prasterone (DHEA) [From DHEA] Allergy (Verified 12/14/18 14:55) sumatriptan [From Imitrex] Allergy (Verified 12/14/18 14:55) Hives Height: 1.52 m Weight: 99.791 kg Patient Problems: Current Active Problems Atypical chest pain (Acute) Hypotension arterial (Acute) - VTE Risk Labs: VTE Related Lab Results Hgb 11.1 g/dL (12.2-16.2) L D 01/06/19 05:55 Hct 34.3 % (37.0-47.0) L 01/06/19 05:55 Plt Count 284 K/mm3 (142-424) D 01/06/19 05:55 BUN 11 mg/dL (7-18) D 01/06/19 05:55 Creatinine 0.72 mg/dL (0.55-1.02) D 01/06/19 05:55 Estimated Creat Clear 74 mL/min (50-200) 01/06/19 05:55 VTE Score: 1 - Prophylaxis VTE Prophylaxis Ordered?: Yes Types of VTE Prophylaxis: TEDS Knee High Location of Applied Device: Bilateral Lower Extremeties - VTE Diagnosis Confirmed Treatment or plan recommended: Continue Current Treatment
--- NOTE | 2019-01-06 09:30 | H&P/Discharge Summary ---
General - General Admission date:: 01/05/19 Discharge date: 01/06/19 *Admission Date: 01/05/19 *Chief complaint: Dizziness *History of present illness: Complains of left parasternal chest pain since 12/28/18, constant. Worsens with cough. Has had a cough, but no sputum production or hemoptysis. No fever. No leg pain or swelling. Has had dizziness which she describes as "the room spinning" consistent with vertigo for the past couple of days. Dizziness is worse with standing. States the pain started after she had a cardiac echo at [facility] for evaluation of patent foramen ovale. She had trans-pulmonary ultrasound enhancing agent and agitated saline administered for the cardiac echo. She is supposed to follow-up with a valve tester to [facility] to discuss "plugging" the PFO. Also states that she has had a migraine ever since that procedure. Has chronic migraines. She is seen at the neurology clinic at [facility]. She was seen there yesterday and given Botox injections. Also given an injection of Toradol and Phenergan. States she still has a migraine. Record reviewed. Recent admission at [facility] on November 29 - December 07. Presented with a leg injury from a fall, but became hypotensive in the emergency room. (Per Dr. Bynum) [facility] History Medical History: Reports:: Anxiety, Asthma, Depression, Gastroesophageal Reflux Disease(GERD), Hypertension, Migraine Denies:: Cancer, Diabetes Mellitus Type 1, Diabetes Mellitus Type 2, MRSA *Have you ever received a pneumonia vaccine?: Yes *Have you received a flu vaccine this season?: Yes Other Medical History: Reports: Other (Pancreatitis, hemachromatosis, anemia, leukocytosis, PFO) Other Surgeries: Yes: , Hysterectomy-Total Amputation: No Fractures: Yes - *Social History Educational Level: Completed High School Smoking Status: Current every day smoker Tobacco Type: cigarettes # Packs/Day (cigarettes): 1 Alcohol Intake: never Substance Use Type: denies use *Occupational Status:: disabled Housing: apartment Household Members: none *Travel in the last 8 weeks: None - Psychiatric History Expresses thoughts of harming self/others: None Suicide Plan Description: No Plan Pschychiatric History:: Reports:: Anxiety, Bipolar Disorder, Depression Family Hx:: Diabetes, Heart Attack, Hyperlipidemia, Hypertension Review of Systems - Eyes Denies blurry vision - ENT Reports dizziness - *Cardiovascular Reports chest pain - *Respiratory Reports cough - *Gastrointestinal Denies abdominal pain, Denies change in stools - *Musculoskeletal Denies abnormal walking, Denies joint pain - *Neurologic Reports dizziness - Psychiatric Denies anxiety - Endocrine Denies cold intolerance - Hematologic/Lymphatic Denies easy bleeding Exam Vital signs and Labs for Last 24 Hours: Temp Pulse Resp BP Pulse Ox 98.7 F 118 H 16 167/100 H 100 01/06/19 08:00 01/06/19 08:00 01/06/19 08:00 01/06/19 08:00 01/06/19 08:00 Laboratory Results - last 24 hr 01/05/19 11:10: WBC 17.3 H, RBC 4.14 L, Hgb 13.1, Hct 42.1, MCV 101.8 H, MCH 31.6 H, MCHC 31.0 L, RDW 17.4, Plt Count 478 H, MPV 8.0, Neut % (Auto) 78.7, Lymph % (Auto) 16.4, [place] % (Auto) 3.6, Eos % (Auto) 1.1, Baso % (Auto) 0.2, Neut # (Auto) 13.6 H, Lymph # (Auto) 2.8, [place] # (Auto) 0.6, Eos # (Auto) 0.2, Baso # (Auto) 0.0, Total Counted 100, Neutrophils % (Manual) 81 H, Lymphocytes % (Manual) 15, Monocytes % (Manual) 3, Eosinophils % (Manual) 1, Platelet Estimate Normal, Macrocytosis 1+ 01/05/19 11:10: Sodium 141, Potassium 3.5, Chloride 108 H, Carbon Dioxide 18 L, Anion Gap 18.5 H, BUN 25 H, Creatinine 1.22 H, Estimated Creat Clear 46, Estimated GFR 50 L, Est GFR ( Amer) 60, Glucose 73 L, Calcium 8.9, T roponin I < 0.02 01/05/19 11:10: D-Dimer 39.1 01/05/19 11:10: Lipase 156 01/05/19 12:41: Lactate 1.5 01/05/19 14:25: Troponin I < 0.02 01/05/19 17:13: Troponin I < 0.02 01/06/19 05:55: WBC 10.0 D, RBC 3.37 L, Hgb 11.1 L D, Hct 34.3 L, MCV 102.0 H, MCH 32.1 H, MCHC 31.4 L, RDW 17.7 H, Plt Count 284 D, MPV 7.8, Neut % (Auto) 52.5, Lymph % (Auto) 41.8, [place] % (Auto) 4.1, Eos % (Auto) 1.4, Baso % (Auto) 0.2, Neut # (Auto) 5.3, Lymph # (Auto) 4.2, [place] # (Auto) 0.4, Eos # (Auto) 0.1, Baso # (Auto) 0.0 01/06/19 05:55: Sodium 142, Potassium 3.1 L, Chloride 111 H, Carbon Dioxide 17 L , Anion Gap 17.1 H, BUN 11 D, Creatinine 0.72 D, Estimated Creat Clear 74, Estimated GFR 92, Est GFR ( Amer) 111 D, Glucose 76, Calcium 8.0 L D I & O for Last 24 hours: Intake & Output 01/03/19 01/04/19 01/05/19 01/06/19 23:59 23:59 23:59 23:59 Intake Total 2320 / 2320 3106 / 3106 Balance 2320 / 2320 3106 / 3106 Weight 220 lb 0.016 oz 220 lb 0.016 oz - Constitutional no acute distress - *Routine HEENT Exam Head: Present: normocephalic Eye: Present: EOMI, PERRL, normal accommodation ENT: Present: mucous membranes moist - *Routine Neck Exam Present: supple. Absent: lymphadenopathy - *Routine Respiratory Exam Present: CTA bilaterally - *Routine Cardiovascular Exam Present: RRR, Normal S1, Normal S2 - *Routine Abdominal Exam Present: soft, normoactive bowel sounds. Absent: tenderness - *Routine Extremities Exam Present: full ROM, pulses intact. Absent: cyanosis, clubbing, edema - Routine Back/Spine/Pelvis Exam Back/Spine: Present: full ROM - *Routine Skin Exam Present: warm. Absent: rash - *Routine Neurological Exam Present: alert, oriented X3, CN II-XII intact - Routine Psychiatric Exam Present: normal affect, normal thought process Hospital Course Hospital Course: CXR: IMPRESSION: Negative chest, no acute finding Results Labs on day of discharge: Labs from last 24 hours 01/06/19 01/06/19 01/05/19 05:55 05:55 17:13 WBC 10.0 D RBC 3.37 L Hgb 11.1 L D Hct 34.3 L MCV 102.0 H MCH 32.1 H MCHC 31.4 L RDW 17.7 H Plt Count 284 D MPV 7.8 Neut % (Auto) 52.5 Lymph % (Auto) 41.8 [place] % (Auto) 4.1 Eos % (Auto) 1.4 Baso % (Auto) 0.2 Neut # (Auto) 5.3 Lymph # (Auto) 4.2 [place] # (Auto) 0.4 Eos # (Auto) 0.1 Baso # (Auto) 0.0 Total Counted Neutrophils % (Manual) Lymphocytes % (Manual) Monocytes % (Manual) Eosinophils % (Manual) Platelet Estimate Macrocytosis D-Dimer Sodium 142 Potassium 3.1 L Chloride 111 H Carbon Dioxide 17 L Anion Gap 17.1 H BUN 11 D Creatinine 0.72 D Estimated Creat Clear 74 Estimated GFR 92 Est GFR ( Amer) 111 D Glucose 76 Lactate Calcium 8.0 L D Troponin I < 0.02 Lipase 01/05/19 01/05/19 01/05/19 14:25 12:41 11:10 WBC RBC Hgb Hct MCV MCH MCHC RDW Plt Count MPV Neut % (Auto) Lymph % (Auto) [place] % (Auto) Eos % (Auto) Baso % (Auto) Neut # (Auto) Lymph # (Auto) [place] # (Auto) Eos # (Auto) Baso # (Auto) Total Counted Neutrophils % (Manual) Lymphocytes % (Manual) Monocytes % (Manual) Eosinophils % (Manual) Platelet Estimate Macrocytosis D-Dimer Sodium Potassium Chloride Carbon Dioxide Anion Gap BUN Creatinine Estimated Creat Clear Estimated GFR Est GFR ( Amer) Glucose Lactate 1.5 Calcium Troponin I < 0.02 Lipase 156 01/05/19 01/05/19 01/05/19 11:10 11:10 11:10 WBC 17.3 H RBC 4.14 L Hgb 13.1 Hct 42.1 MCV 101.8 H MCH 31.6 H MCHC 31.0 L RDW 17.4 Plt Count 478 H MPV 8.0 Neut % (Auto) 78.7 Lymph % (Auto) 16.4 [place] % (Auto) 3.6 Eos % (Auto) 1.1 Baso % (Auto) 0.2 Neut # (Auto) 13.6 H Lymph # (Auto) 2.8 [place] # (Auto) 0.6 Eos # (Auto) 0.2 Baso # (Auto) 0.0 Total Counted 100 Neutrophils % (Manual) 81 H Lymphocytes % (Manual) 15 Monocytes % (Manual) 3 Eosinophils % (Manual) 1 Platelet Estimate Normal Macrocytosis 1+ D-Dimer 39.1 Sodium 141 Potassium 3.5 Chloride 108 H Carbon Dioxide 18 L Anion Gap 18.5 H BUN 25 H Creatinine 1.22 H Estimated Creat Clear 46 Estimated GFR 50 L Est GFR ( Amer) 60 Glucose 73 L Lactate Calcium 8.9 Troponin I < 0.02 Lipase - Additional Comments Web Development Intern will obtain Halter Monitor finding from [facility]: Diagnosis - Discharge Diagnosis (1) Hypotension arterial Status: Acute Discharge Medications - Medications for Discharge Home Medication List at Discharge: Continue gabapentin 600 mg tablet 1,200 mg PO TID 30 Days #180 tab oxycodone 15 mg tablet 15 mg PO QIDP PRN 30 Days #90 tab PRN Reason: PAIN quetiapine 200 mg tablet 200 mg PO HS 30 Days #30 tab tizanidine 4 mg tablet 4 mg PO TID 30 Days #270 tab dicyclomine 20 mg tablet 20 mg PO QID metoprolol tartrate 25 mg tablet 25 mg PO BID #180 tab lisinopril 10 mg tablet 10 mg PO DAILY #90 tab montelukast 10 mg tablet 10 mg PO HS #90 tab paroxetine 20 mg tablet 20 mg PO DAILY 30 Days #30 tab zolpidem 10 mg tablet 10 mg PO HS 30 Days #30 tab Escitalopram Oxalate 10 mg PO DAILY Cetirizine HCl 10 mg PO DAILY Prochlorperazine Maleate [Compazine 10mg tablet] 10 mg PO TID PRN PRN Reason: Nausea Famotidine [Pepcid] 40 mg PO BID Disposition Disposition: Home, Self-Care
== END 2019-01-06 11:10 | disposition home or self-care (01) ==
LOC: 2ND 11:01 → ER 11:01 → 2ND 15:16
PROVIDERS: ADMIT Emergency Medicine; ATTEND Emergency Medicine
DX: Z88.0 Allergy status to penicillin; Z72.0 Tobacco use; Z91.81 History of falling; I10 Essential (primary) hypertension; Z88.6 Allergy status to analgesic agent; G43.909 Migraine, unspecified, not intractable, without status migrainosus; R07.89 Other chest pain; J45.909 Unspecified asthma, uncomplicated; I95.89 Other hypotension; R05 Cough; Z79.891 Long term (current) use of opiate analgesic; K21.9 Gastro-esophageal reflux disease without esophagitis; R42 Dizziness and giddiness; Z88.8 Allergy status to other drugs, medicaments and biological substances; Z79.899 Other long term (current) drug therapy
CPT/HCPCS: 36415; 71010; 71045; 80048; 83605; 83690; 84484; 85007; 85025; 85378; 87040; 93005; 96365; 96366; 96375; 99285; G0378

== ENCOUNTER 2019-04-26 15:15 | Inpatient (IN) ==
--- NOTE | 2019-04-26 15:22 | Emergency Department Note ---
ED Disposition Clinical Impression: UTI (urinary tract infection) Qualifiers: Urinary tract infection type: acute pyelonephritis Qualified Code(s): N10 - Acute pyelonephritis Sepsis Qualifiers: Sepsis type: sepsis due to unspecified organism Qualified Code(s): A41.9 - Sepsis, unspecified organism Disposition: Admitted As Inpatient Condition on Discharge: Serious Referrals: Provider,Referral, [Referring] - - Critical Care Critical Care Time: No Attestation: On , the high probability of a clinically significant, sudden or life threatening deterioration of the following system(s) required my full and direct attention, intervention and personal management. The time I documented below is in addition to time spent performing reported procedures but includes the following listed in this critical care notation. Medical Decision Making - Zach Inquiry Pt receiving controlled substance: Yes Zach was queried for this patient: No Reason not queried -: Emergent pt cond-no time Risks and benefits of using a controlled substance: were not discussed with pt by me Vital Signs: 04/26/19 15:17 04/26/19 16:08 04/26/19 16:30 Temperature 103.1 F H Temperature Source Oral Pulse Rate [Right Brachial] 143 H 128 H Pulse Rate [Right Radial] 130 H Respiratory Rate 24 Blood Pressure [Right Arm] 110/60 110/60 116/56 L Blood Pressure Mean [Right Arm] 76 76 76 Blood Pressure Source [Right Arm] Automatic Cuff Automatic Cuff Automatic Cuff Blood Pressure Position [Right Arm] Sitting Sitting Supine 02 Sat by Pulse Oximetry 99 97 Oxygen Delivery Method Room Air Room Air 04/26/19 17:34 Temperature 99.3 F Temperature Source Oral Pulse Rate [Right Brachial] Pulse Rate [Right Radial] Respiratory Rate Blood Pressure [Right Arm] Blood Pressure Mean [Right Arm] Blood Pressure Source [Right Arm] Blood Pressure Position [Right Arm] 02 Sat by Pulse Oximetry Oxygen Delivery Method - Lab Data Lab Results 04/26/19 15:20: WBC 27.8 H*, RBC 3.55 L, Hgb 10.4 L, Hct 33.7 L, MCV 95.0, MCH 29.4, MCHC 31.0 L, RDW 16.5, Plt Count 662 H, MPV 9.0, Neut % (Auto) 83.0 H, Lymph % (Auto) 10.6, Davison % (Auto) 5.2, Eos % (Auto) 0.7, Baso % (Auto) 0.4, Neut # (Auto) 23.1 H, Lymph # (Auto) 3.0, Davison # (Auto) 1.5 H, Eos # (Auto) 0.2, Baso # (Auto) 0.1, Total Counted 100, Neutrophils % (Manual) 82 H, Band Neutrophils % 5.0, Lymphocytes % (Manual) 10, Monocytes % (Manual) 3, Platelet Estimate Moderate increase, Hypochromasia 1+ 04/26/19 15:20: Sodium 136, Potassium 3.2 L, Chloride 100, Carbon Dioxide 20 L, Anion Gap 19.2 H, BUN 10, Creatinine 0.98, Estimated Creat Clear 119, Estimated GFR 64, Est GFR ( Amer) 78, Glucose 128 H, Calcium 8.7, Total Bilirubin 0.5, AST 28, ALT 43, Alkaline Phosphatase 411 H, Troponin I < 0.02, Total Protein 7.8, Albumin 2.5 L, Globulin 5.3 H, Albumin/Globulin Ratio 0.5 L, Amylase 40, Lipase 165 04/26/19 15:20: Lactate 2.1 H 04/26/19 15:54: Chlamy pneumoniae PCR Not detected, Adenovirus (PCR) Not detected, B. pertussis DNA (PCR) Not detected, Coronavirus OC43 (PCR) Not detected, Coronavirus HKU1 (PCR) Not detected, Coronavirus 229E (PCR) Not detected, Coronavirus NL63 (PCR) Not detected, Human Metapneumovir PCR Not detected, Influenza A (H1) PCR Not detected, Influ A (H1N1/09) PCR Not detected, Influenza A (H3) PCR Not detected, Influenza Type A (PCR) Not detected, Influenza Type B (PCR) Not detected, M. pneumoniae (PCR) Not detected, Parainfluenza 1 (PCR) Not detected, Parainfluenza 2 (PCR) Not detected, Parainfluenza 3 (PCR) Not detected, Parainfluenza 4 (PCR) Not detected, RSV (PCR) Not detected, Entero/Rhino (PCR) Not detected 04/26/19 16:47: Urine Color Yellow, Urine Appearance Clear, Urine pH 6.0, Ur Specific Riley 1.020, Urine Protein 1+, Urine Glucose (UA) Negative, Urine Ketones Negative, Urine Blood Trace-i, Urine Nitrate Positive, Urine Bilirubin 1+ A, Urine Urobilinogen 1.0, Ur Leukocyte Esterase 2+ A, Urine RBC Occasional, Urine WBC 20-50, Ur Squamous Epith Cells 5-10, Urine Bacteria 3+ Result diagrams: 04/26/19 15:20 04/26/19 15:20 Orders (Tests/Meds): ED MEDICATIONS Generic Name Dose Route Start Last Admin Trade Name Freq PRN Reason Stop Dose Admin Ceftriaxone Sodium 1 gm/ 50 mls @ 100 mls/hr 04/26/19 17:30 04/26/19 17:39 Sodium Chloride IV 05/10/19 17:29 100 mls/hr Q24H CAMILO Administration Protocol Discontinued Medications Generic Name Dose Route Start Last Admin Trade Name Freq PRN Reason Stop Dose Admin Acetaminophen 1,000 mg 04/26/19 15:28 04/26/19 15:37 Tylenol 500mg Tablet PO 04/26/19 15:29 1,000 mg ONCE ONE Administration Morphine Sulfate 4 mg 04/26/19 15:59 04/26/19 16:20 Morphine 4mg/Ml Syringe IV 04/26/19 16:00 4 mg ONCE ONE Administration Ondansetron HCl 4 mg 04/26/19 15:28 04/26/19 15:37 Zofran 4mg/2ml Vial IV 04/26/19 15:29 4 mg ONCE ONE Administration Potassium Chloride 40 meq 04/26/19 16:10 04/26/19 16:20 Klor-Con 20meq Tablet PO 04/26/19 16:11 40 meq ONCE ONE Administration Promethazine HCl 12.5 mg 04/26/19 15:56 04/26/19 16:20 Phenergan 25mg/Ml 1ml Vial IV 04/26/19 15:57 12.5 mg ONCE ONE Administration Sodium Chloride 1,000 ml 04/26/19 15:31 04/26/19 15:37 Sod Chlor 0.9% 1000ml Bag IV 04/26/19 15:32 1,000 ml BOLUS ONE Administration Sodium Chloride 25 ml 04/26/19 15:56 04/26/19 16:19 Sod Chlor 0.9% 25ml Bag IV 04/26/19 15:57 25 ml ONCE ONE Administration Sodium Chloride 1,850 ml 04/26/19 16:08 04/26/19 16:20 Sod Chlor 0.9% 1000ml Bag IV 04/26/19 16:09 1,850 ml BOLUS ONE Administration ORDERS Category Date Time Status Blood Culture Stat Micro 04/26/19 15:20 Received Urine Culture Stat Micro 04/26/19 16:47 Received - Radiology Data #1 Image(s): Chest Image Reviewed: Yes I reviewed the patient's radiology image, Yes I have reviewed radiologist's interpretation Preliminary Findings: Normal/NAD - ECG Data Tracing #1 EKG interpreted by Alejandro Bynum MD: Rhythm: sinus tachycardia Rate: 139 L[place]: normal Ectopy: none Conduction: normal ST Segment Changes: none T Wave Changes: none Q Waves: none No evidence of acute ischemia or injury LVH baseline artifact present, but I consider the EKG adequate for accurate interpretation. - Physician Consults Physician Consulted: Saurabh Gonzales Time: 17:41 Reason -: Admission Comment/Response: Agrees to admit the patient to the hospital. We discussed the patient's clinical information, including history, exam, laboratory and radiology results and ED course. Per hospital procedure, I will write temporary bridge inpatient orders on the patient. Specific orders requested by the admitting physician: Continue Rocephin, IV fluids. - Tissue Perfus/Sepsis Re-Eval Reperfusion Exam Performed: Yes Date Performed: 04/26/19 Time Performed: 17:41 Sepsis Follow-Up: Yes: Respiratory exam, Cardiovascular exam, Capillary refill, Peripheral pulse strength, Peripheral pulse location, Skin exam, Vital Signs General Adult HPI - General Chief complaint: Shortness of Breath/Dyspnea Stated complaint: SHORTNESS OF AIR Time Seen by Provider: 04/26/19 15:21 - History of Present Illness HPI narrative: Sent from primary care provider's office. Patient says that she burned her back on a heating pad 1 week ago. She is concerned because "gets green". Ever since she burned herself she has had sternal chest pain which increases with breathing and coughing. She also feels short of breath. She has vomiting, but no diarrhea. She has a fever. She has a cough, but no significant sputum production and no hemoptysis. Denies urinary symptoms. - Related Data Home Medications Medication Instructions Recorded Confirmed gabapentin 600 mg tablet 1,200 mg PO TID 30 Days #180 tab 11/03/18 04/26/19 oxycodone 15 mg tablet 15 mg PO QIDP PRN 30 Days #90 tab 11/03/18 04/26/19 paroxetine 20 mg tablet 20 mg PO DAILY 30 Days #30 tab 11/03/18 04/26/19 quetiapine 200 mg tablet 200 mg PO HS 30 Days #30 tab 11/03/18 04/26/19 tizanidine 4 mg tablet 4 mg PO TID 30 Days #270 tab 11/03/18 04/26/19 dicyclomine 20 mg tablet 20 mg PO QID 12/14/18 04/26/19 Cetirizine HCl 10 mg PO DAILY 01/05/19 04/26/19 Famotidine [Pepcid] 40 mg PO BID 01/05/19 04/26/19 trazodone 50 mg tablet 50 mg PO QHS PRN 03/22/19 04/26/19 Metoprolol Succinate 100 mg PO DAILY 04/05/19 04/26/19 Previous Rx's Medication Instructions Recorded montelukast 10 mg tablet 10 mg PO HS #90 tab 12/14/18 zolpidem 10 mg tablet 10 mg PO HS 30 Days #30 tab 03/11/19 benzonatate 100 mg capsule 100 mg PO BID PRN #14 cap 03/22/19 Allergies Allergy/AdvReac Type Severity Reaction Status Date / Time Pertussis Vaccines Allergy Mild Hives Verified 04/26/19 14:40 calcium [From DHEA] Allergy Verified 04/26/19 14:40 calcium carbonate [From DHEA] Allergy Verified 04/26/19 14:40 ciprofloxacin [From Cipro] Allergy escoto Verified 04/26/19 14:40 ibuprofen [From Motrin] Allergy Hives Verified 04/26/19 14:40 Penicillins Allergy Hives Verified 04/26/19 14:40 prasterone (DHEA) [From DHEA] Allergy Verified 04/26/19 14:40 sumatriptan [From Imitrex] Allergy Hives Verified 04/26/19 14:40 [facility] History - Hepatitis A Screen Attestation statement:: This patient has been screened for Hepatitis A risk factors. I have reviewed the patient's past medical history: Yes Medical History: Reports:: Anxiety, Asthma, Depression, Gastroesophageal Reflux Disease(GERD), Hypertension, Migraine Denies:: Cancer, Diabetes Mellitus Type 1, Diabetes Mellitus Type 2, MRSA Other Medical History: Reports: Other Other Surgeries: Yes: , Hysterectomy-Total Amputation: No Fractures: Yes Comment: left leg fx,aleksandar placed - Social History Smoking Status: Current every day smoker Tobacco Type: cigarettes # Packs/Day (cigarettes): 15 Alcohol Intake: never Substance Use Type: denies use Occupational Status: unemployed, disabled Housing: apartment Household Members: none - Psychiatric History Pschychiatric History:: Reports:: Anxiety, Bipolar Disorder, Depression Family Hx:: Diabetes, Heart Attack, Hyperlipidemia, Hypertension ROS Obtained: Yes All systems reviewed & no additional complaints - Constitutional Constitutional: Reports fever(s) - ENT Ears, Nose, Mouth, and Throat: Reports sore throat - Cardiovascular Cardiovascular: Reports chest pain - Respiratory Respiratory: Yes cough, Yes dyspnea, No excessive phlegm production, No coughing up blood - Gastrointestinal Gastrointestingal: Reports: vomiting. Denies: abdominal pain, diarrhea - Genitourinary Female Genitourinary: Denies difficulty voiding, Denies urinary frequency, Denies urinary urgency Physical Exam - General General appearance: alert - Head Head exam: atraumatic, normocephalic - Eye Eye exam: Present: normal appearance, PERRL, EOMI - ENT ENT exam: Present: mucous membranes dry - Neck Neck exam: Present: normal inspection, full ROM, trachea midline. Absent: meningismus - Chest Chest inspection: Present: normal inspection, symmetric chest wall rise - Respiratory Respiratory exam: Present: normal lung sounds bilaterally. Absent: respiratory distress - Cardiovascular Cardiovascular exam: Present: normal rhythm, tachycardia, normal heart sounds - Abdominal Exam Abdominal exam: Present: soft, normal bowel sounds. Absent: distention, tenderness, guarding, rebound - Extremities Exam Extremities exam: Present: normal inspection - Back Exam Comment: Healing partial-thickness davis right periscapular area. Dry scabs present. No erythema, drainage, purulence. The "green" that she describes is a normal- appearing eschar. - Neurological Exam Neurological exam: Present: alert, oriented X3, CN II-XII intact. Absent: motor sensory deficit - Psychiatric Psychiatric exam: Present: anxious - Skin Skin exam: Present: warm, dry
[2019-04-26 15:40] LABS: Basophils # 0.1 K/mm3 (0-0.2); Basophils % 0.4 % (0.1-2.0); Eosinophils # 0.2 K/mm3 (0.0-0.4); Eosinophils % 0.7 % (0.1-12.0); Hematocrit 33.7 % (37.0-47.0); Hemoglobin 10.4 g/dL (12.2-16.2); Lymphocytes % 10.6 % (10-50); Monocytes # 1.5 K/mm3 (0.1-1.0); Monocytes % 5.2 % (1.7-9.3); Neutrophils # 23.1 K/mm3 (1.8-7.8); Red Blood Count 3.55 M/mm3 (4.20-5.40); Red Cell Distribution Width 16.5 % (11.5-17.5); White Blood Count 27.8 K/mm3 (4.8-10.8)
[2019-04-26 15:59] LABS: Alanine Aminotransferase 43 U/L (12-78); Albumin Level 2.5 gm/dL (3.4-5.0); Albumin/Globulin Ratio 0.5 (1.1-1.8); Alkaline Phosphatase 411 U/L (46-116); Amylase 40 U/L (25-115); Anion Gap 19.2 mEq/L (5-15); Aspartate Amino Transferase 28 U/L (15-37); Bilirubin,Total 0.5 mg/dL (0.2-1.0); Blood Urea Nitrogen 10 mg/dL (7-18); Calcium 8.7 mg/dL (8.5-10.1); Carbon Dioxide 20 mmol/L (21.0-32.0); Chloride 100 mmol/L (98-107); Globulin 5.3 gm/dl (1.3-3.2); Glucose 128 mg/dL (74-106); Sodium 136 mmol/L (136-145); Total Protein,Serum 7.8 gm/dL (6.4-8.2)
[2019-04-26 16:03] LABS: Coronavirus 229E Not Detected (NotDetected); Coronavirus NL63 Not Detected (NotDetected); Coronavirus OC43 Not Detected (NotDetected); Coronovirus HKU1,PCR Not Detected (NotDetected)
[2019-04-26 16:03] LABS: Platelet Count 662 K/mm3 (142-424)
[2019-04-26 16:05] LABS: Lymphocytes % 10 % (10-50); Monocytes % 3 % (2-9); Neutrophils % 82 % (42-76); Total Cells Counted 100
[2019-04-26 16:06] LABS: Hypochromasia 1+
[2019-04-26 16:53] LABS: Microscopic, Urine URINE MICROSCOPIC (MICROSCOPIC)
[2019-04-26 16:55] LABS: Appearance,Urine CLEAR (Clear); Blood, Urine TRACE-I (Negative); Color,Urine YELLOW (Yellow); Glucose,Urine (UA) Negative (Negative); Ketones,Urine Negative (Negative); Leukocyte Esterase,Urine 2+ (Negative); Protein,Urine 1+ (Negative)
[2019-04-26 17:10] LABS: Bacteria,Urine 3+ /lpf; Bilirubin,Urine 1+ (Negative); RBC,Urine Occasional #/hpf (0-3); WBC,Urine 20-50 #/hpf (0-3)
--- NOTE | 2019-04-26 22:56 | History & Physical Report ---
*Admission Date: 04/26/19 *Chief complaint: not feeling well *History of present illness: pt was sent from pcp office for not feeling well and was seen in the ed -ent from primary care provider's office. Patient says that she burned her back on a heating pad 1 week ago. She is concerned because "gets green". Ever since she burned herself she has had sternal chest pain which increases with breathing and coughing. She also feels short of breath. She has vomiting, but no diarrhea. She has a fever. She has a cough, but no significant sputum production and no hemoptysis. Denies urinary symptoms.pt was found to have uti and criteria for sepsis and was admitted with ivf and abx [facility] History I have reviewed the patient's past medical history: Yes Medical History: Reports:: Anxiety, Asthma, Depression, Gastroesophageal Reflux Disease(GERD), Hypertension, Migraine Denies:: Cancer, Diabetes Mellitus Type 1, Diabetes Mellitus Type 2, MRSA *Have you ever received a pneumonia vaccine?: Yes *Have you received a flu vaccine this season?: Yes Other Medical History: Reports: Other Other Surgeries: Yes: , Hysterectomy-Total Amputation: No Fractures: Yes - *Social History Educational Level: Completed College Smoking Status: Current every day smoker Tobacco Type: cigarettes # Packs/Day (cigarettes): 1 Alcohol Intake: never Substance Use Type: denies use *Occupational Status:: disabled Housing: apartment Household Members: none *Travel in the last 8 weeks: None - Psychiatric History Expresses thoughts of harming self/others: None Suicide Plan Description: No Plan Pschychiatric History:: Reports:: Anxiety, Bipolar Disorder, Depression Family Hx:: Diabetes, Heart Attack, Hyperlipidemia, Hypertension Review of Systems - Review of Systems Review of systems:: pertinent systems reviewed and negative unless documented below - Constitutional Reports weakness, Denies headache(s) - Eyes Denies change in vision - ENT Denies sore throat - *Cardiovascular Denies chest pain at rest - *Respiratory Denies cough - *Gastrointestinal Denies abdominal pain - *Genitourinary Denies pelvic pain - *Musculoskeletal Denies joint pain - Integumentary/Breasts Denies rash - *Neurologic Denies seizure-like activity Meds Home Medications Medication Instructions Recorded Confirmed Type gabapentin 600 mg tablet 1,200 mg PO TID 30 Days #180 tab 11/03/18 04/26/19 History oxycodone 15 mg tablet 15 mg PO QIDP PRN 30 Days #90 tab 11/03/18 04/26/19 History paroxetine 20 mg tablet 20 mg PO DAILY 30 Days #30 tab 11/03/18 04/26/19 History quetiapine 200 mg tablet 200 mg PO HS 30 Days #30 tab 11/03/18 04/26/19 History tizanidine 4 mg tablet 4 mg PO TID 30 Days #270 tab 11/03/18 04/26/19 History dicyclomine 20 mg tablet 20 mg PO QID 12/14/18 04/26/19 History montelukast 10 mg tablet 10 mg PO HS #90 tab 12/14/18 04/26/19 Rx Cetirizine HCl 10 mg PO DAILY 01/05/19 04/26/19 History Famotidine [Pepcid] 40 mg PO BID 01/05/19 04/26/19 History zolpidem 10 mg tablet 10 mg PO HS 30 Days #30 tab 03/11/19 04/26/19 Rx benzonatate 100 mg capsule 100 mg PO BID PRN #14 cap 03/22/19 04/26/19 Rx Metoprolol Succinate 100 mg PO DAILY 04/05/19 04/26/19 History Allergies Allergy/AdvReac Type Severity Reaction Status Date / Time Pertussis Vaccines Allergy Mild Hives Verified 04/26/19 14:40 calcium [From DHEA] Allergy Verified 04/26/19 14:40 calcium carbonate [From DHEA] Allergy Verified 04/26/19 14:40 ciprofloxacin [From Cipro] Allergy escoto Verified 04/26/19 14:40 ibuprofen [From Motrin] Allergy Hives Verified 04/26/19 14:40 Penicillins Allergy Hives Verified 04/26/19 14:40 prasterone (DHEA) [From DHEA] Allergy Verified 04/26/19 14:40 sumatriptan [From Imitrex] Allergy Hives Verified 04/26/19 14:40 Exam Vital signs and Labs for Last 24 Hours: Temp Pulse Resp BP Pulse Ox 98.9 F 109 H 20 114/87 100 04/26/19 20:00 04/26/19 20:00 04/26/19 20:00 04/26/19 20:00 04/26/19 20:00 Laboratory Results - last 24 hr 04/26/19 15:20: WBC 27.8 H*, RBC 3.55 L, Hgb 10.4 L, Hct 33.7 L, MCV 95.0, MCH 29.4, MCHC 31.0 L, RDW 16.5, Plt Count 662 H, MPV 9.0, Neut % (Auto) 83.0 H, Lymph % (Auto) 10.6, [place] % (Auto) 5.2, Eos % (Auto) 0.7, Baso % (Auto) 0.4, Neut # (Auto) 23.1 H, Lymph # (Auto) 3.0, [place] # (Auto) 1.5 H, Eos # (Auto) 0.2, Baso # (Auto) 0.1, Total Counted 100, Neutrophils % (Manual) 82 H, Band Neutrophils % 5.0, Lymphocytes % (Manual) 10, Monocytes % (Manual) 3, Platelet Estimate Moderate increase, Hypochromasia 1+ 04/26/19 15:20: Sodium 136, Potassium 3.2 L, Chloride 100, Carbon Dioxide 20 L, Anion Gap 19.2 H, BUN 10, Creatinine 0.98, Estimated Creat Clear 119, Estimated GFR 64, Est GFR ( Amer) 78, Glucose 128 H, Calcium 8.7, Total Bilirubin 0.5, AST 28, ALT 43, Alkaline Phosphatase 411 H, Troponin I < 0.02, Total Protein 7.8, Albumin 2.5 L, Globulin 5.3 H, Albumin/Globulin Ratio 0.5 L, Amylase 40, Lipase 165 04/26/19 15:20: Lactate 2.1 H 04/26/19 15:54: Chlamy pneumoniae PCR Not detected, Adenovirus (PCR) Not detected, B. pertussis DNA (PCR) Not detected, Coronavirus OC43 (PCR) Not detected, Coronavirus HKU1 (PCR) Not detected, Coronavirus 229E (PCR) Not detected, Coronavirus NL63 (PCR) Not detected, Human Metapneumovir PCR Not detected, Influenza A (H1) PCR Not detected, Influ A (H1N1/09) PCR Not detected, Influenza A (H3) PCR Not detected, Influenza Type A (PCR) Not detected, Influenza Type B (PCR) Not detected, M. pneumoniae (PCR) Not detected, Parainfluenza 1 (PCR) Not detected, Parainfluenza 2 (PCR) Not detected, Parainfluenza 3 (PCR) Not detected, Parainfluenza 4 (PCR) Not detected, RSV (PCR) Not detected, Entero/Rhino (PCR) Not detected 04/26/19 16:47: Urine Color Yellow, Urine Appearance Clear, Urine pH 6.0, Ur Specific Dalton 1.020, Urine Protein 1+, Urine Glucose (UA) Negative, Urine Ketones Negative, Urine Blood Trace-i, Urine Nitrate Positive, Urine Bilirubin 1+ A, Urine Urobilinogen 1.0, Ur Leukocyte Esterase 2+ A, Urine RBC Occasional, Urine WBC 20-50, Ur Squamous Epith Cells 5-10, Urine Bacteria 3+ 04/26/19 19:27: Lactate 0.7 I & O for Last 24 hours: Intake & Output 04/24/19 04/25/19 04/26/19 04/27/19 11:59 11:59 11:59 11:59 Intake Total 3050 / 3050 Output Total 450 / 450 Balance 2600 / 2600 Weight 205 lb 7 oz - Constitutional no acute distress, obese - *Routine HEENT Exam Head: Present: normocephalic Eye: Present: EOMI, PERRL ENT: Present: mucous membranes dry - *Routine Neck Exam Absent: JVD - *Routine Respiratory Exam Present: decreased breath sounds - *Routine Cardiovascular Exam Present: RRR - *Routine Abdominal Exam Present: soft - *Routine Extremities Exam Absent: calf tenderness - Routine Back/Spine/Pelvis Exam Back/Spine: Absent: CVA tenderness - *Routine Skin Exam Present: intact - *Routine Neurological Exam Present: alert, CN II-XII intact - Routine Psychiatric Exam Present: normal affect Assessment and Plan (1) Obesity Current visit: Yes Status: Acute Qualifiers: Obesity type: due to excess calories Obesity classification: adult class 3 (BMI >= 40) Serious obesity comorbidity presence: with serious comorbidity Body mass index: BMI 40.0-44.9 Qualified Code(s): E66.01 - Morbid (severe) obesity due to excess calories; Z68.41 - Body mass index (BMI) 40.0-44.9, adult Category: Medical Code(s): E66.9 - Obesity, unspecified (2) UTI (urinary tract infection) Current visit: Yes Status: Acute Qualifiers: Urinary tract infection type: acute pyelonephritis Qualified Code(s): N10 - Acute pyelonephritis Category: Medical Code(s): N39.0 - Urinary tract infection, site not specified (3) Sepsis Current visit: Yes Status: Acute Qualifiers: Sepsis type: sepsis due to unspecified organism Qualified Code(s): A41.9 - Sepsis, unspecified organism Category: Medical Code(s): A41.9 - Sepsis, unspecified organism (4) Hypokalemia Current visit: Yes Status: Acute Category: Medical Code(s): E87.6 - Hypokalemia (5) Elevated alkaline phosphatase level Current visit: Yes Status: Acute Category: Medical Code(s): R74.8 - Abnormal levels of other serum enzymes (6) Anemia Current visit: Yes Status: Acute Category: Medical Code(s): D64.9 - Anemia, unspecified
[2019-04-27 07:57] LABS: Anion Gap 12.9 mEq/L (5-15)
[2019-04-27 08:20] LABS: Basophils # 0.1 K/mm3 (0-0.2); Basophils % 0.3 % (0.1-2.0); Eosinophils % 0.7 % (0.1-12.0); Red Blood Count 2.97 M/mm3 (4.20-5.40); Red Cell Distribution Width 16.2 % (11.5-17.5)
[2019-04-27 08:30] LABS: Calcium 7.9 mg/dL (8.5-10.1)
[2019-04-27 08:49] LABS: Eosinophils # 0.1 K/mm3 (0.0-0.4); Hematocrit 28.4 % (37.0-47.0); Lymphocytes # 2.7 K/mm3 (0.7-4.5); Lymphocytes % 13.8 % (10-50); Mean Corpuscular HGB Conc 30.2 g/dL (31.8-35.4); Mean Corpuscular Volume 95.3 fl (81-99); Mean Platelet Volume 9.1 fl (7.4-10.4); Monocytes # 1.4 K/mm3 (0.1-1.0); Monocytes % 7.4 % (1.7-9.3); Neutrophils # 15.2 K/mm3 (1.8-7.8); Neutrophils % 77.7 % (37.0-80.0); Platelet Count 451 K/mm3 (142-424); White Blood Count 19.6 K/mm3 (4.8-10.8)
[2019-04-27 10:59] LABS: Anisocytosis 2+; Lymphocytes % 8 % (10-50); Monocytes % 4 % (2-9); Neutrophils % 86 % (42-76); Total Cells Counted 100
[2019-04-27 11:00] LABS: Hypochromasia 1+; Tear Drop Cells 1+
--- NOTE | 2019-04-27 12:07 | Progress Note ---
Internal Medicine - PN: Subj *Date: 04/28/19 *Time: 09:04 Interval history: doing better but awaiting cultures Exam Vital signs and Labs for Last 24 Hours: Temp Pulse Resp BP Pulse Ox 99.3 F 132 H 18 142/71 H 100 04/27/19 08:00 04/27/19 08:00 04/27/19 08:00 04/27/19 08:00 04/27/19 08:00 Laboratory Results - last 24 hr 04/26/19 15:20: WBC 27.8 H*, RBC 3.55 L, Hgb 10.4 L, Hct 33.7 L, MCV 95.0, MCH 29.4, MCHC 31.0 L, RDW 16.5, Plt Count 662 H, MPV 9.0, Neut % (Auto) 83.0 H, Lymph % (Auto) 10.6, [place] % (Auto) 5.2, Eos % (Auto) 0.7, Baso % (Auto) 0.4, Neut # (Auto) 23.1 H, Lymph # (Auto) 3.0, [place] # (Auto) 1.5 H, Eos # (Auto) 0.2, Baso # (Auto) 0.1, Total Counted 100, Neutrophils % (Manual) 82 H, Band Neutrophils % 5.0, Lymphocytes % (Manual) 10, Monocytes % (Manual) 3, Platelet Estimate Moderate increase, Hypochromasia 1+ 04/26/19 15:20: Sodium 136, Potassium 3.2 L, Chloride 100, Carbon Dioxide 20 L, Anion Gap 19.2 H, BUN 10, Creatinine 0.98, Estimated Creat Clear 119, Estimated GFR 64, Est GFR ( Amer) 78, Glucose 128 H, Calcium 8.7, Total Bilirubin 0.5, AST 28, ALT 43, Alkaline Phosphatase 411 H, Troponin I < 0.02, Total Protein 7.8, Albumin 2.5 L, Globulin 5.3 H, Albumin/Globulin Ratio 0.5 L, Amylase 40, Lipase 165 04/26/19 15:20: Lactate 2.1 H 04/26/19 15:54: Chlamy pneumoniae PCR Not detected, Adenovirus (PCR) Not detected, B. pertussis DNA (PCR) Not detected, Coronavirus OC43 (PCR) Not detected, Coronavirus HKU1 (PCR) Not detected, Coronavirus 229E (PCR) Not detected, Coronavirus NL63 (PCR) Not detected, Human Metapneumovir PCR Not detected, Influenza A (H1) PCR Not detected, Influ A (H1N1/09) PCR Not detected, Influenza A (H3) PCR Not detected, Influenza Type A (PCR) Not detected, Influe nza Type B (PCR) Not detected, M. pneumoniae (PCR) Not detected, Parainfluenza 1 (PCR) Not detected, Parainfluenza 2 (PCR) Not detected, Parainfluenza 3 (PCR) Not detected, Parainfluenza 4 (PCR) Not detected, RSV (PCR) Not detected, Entero/Rhino (PCR) Not detected 04/26/19 16:47: Urine Color Yellow, Urine Appearance Clear, Urine pH 6.0, Ur Specific [place] 1.020, Urine Protein 1+, Urine Glucose (UA) Negative, Urine Ketones Negative, Urine Blood Trace-i, Urine Nitrate Positive, Urine Bilirubin 1+ A, Urine Urobilinogen 1.0, Ur Leukocyte Esterase 2+ A, Urine RBC Occasional, Urine WBC 20-50, Ur Squamous Epith Cells 5-10, Urine Bacteria 3+ 04/26/19 19:27: Lactate 0.7 04/27/19 06:00: WBC 19.6 H D, RBC 2.97 L, Hct 28.4 L, MCV 95.3, MCH 28.8, MCHC 30.2 L, RDW 16.2, Plt Count 451 H D, MPV 9.1, Neut % (Auto) 77.7, Lymph % (Auto) 13.8, [place] % (Auto) 7.4, Eos % (Auto) 0.7, Baso % (Auto) 0.3, Neut # (Auto) 15.2 H, Lymph # (Auto) 2.7, [place] # (Auto) 1.4 H, Eos # (Auto) 0.1, Baso # (Auto) 0.1, Total Counted 100, Neutrophils % (Manual) 86 H, Band Neutrophils % 2.0, Lymphocytes % (Manual) 8 L, Monocytes % (Manual) 4, Platelet Estimate Slight increase, Hypochromasia 1+, Anisocytosis 2+, Microcytosis 1+, Tear Drop Cells 1+ 04/27/19 06:00: Sodium 138, Potassium 2.9 L*, Chloride 107, Carbon Dioxide 21, Anion Gap 12.9, BUN 7 D, Creatinine 0.90, Estimated Creat Clear 62, Estimated GFR 71, Est GFR ( Amer) 86, Glucose 64 L D, Calcium 7.9 L I & O for Last 24 hours: Intake & Output 04/25/19 04/26/19 04/27/19 04/28/19 11:59 11:59 11:59 11:59 Intake Total 4785 / 4785 Output Total 450 / 450 Balance 4335 / 4335 Weight 212 lb 2 oz Microbiology Reports for the Last 24 Hours: Microbiology 04/26/19 15:20 Blood Blood Culture - Preliminary 04/26/19 16:47 Urine,Random Urine Culture - Preliminary Gram Negative Rods - Constitutional no acute distress, obese - *Routine HEENT Exam Head: Present: normocephalic Eye: Present: EOMI, PERRL ENT: Present: mucous membranes dry - *Routine Neck Exam Present: supple. Absent: JVD - *Routine Respiratory Exam Present: CTA bilaterally - *Routine Cardiovascular Exam Present: RRR, murmur - *Routine Abdominal Exam Present: soft - *Routine Extremities Exam Present: pulses intact - *Routine Skin Exam Present: intact - *Routine Neurological Exam Present: alert, CN II-XII intact - Routine Psychiatric Exam Present: normal affect Assessment and Plan (1) Obesity Current visit: Yes Status: Acute Qualifiers: Obesity type: due to excess calories Obesity classification: adult class 3 (BMI >= 40) Serious obesity comorbidity presence: with serious comorbidity Body mass index: BMI 40.0-44.9 Qualified Code(s): E66.01 - Morbid (severe) obesity due to excess calories; Z68.41 - Body mass index (BMI) 40.0-44.9, adult Category: Medical Code(s): E66.9 - Obesity, unspecified (2) UTI (urinary tract infection) Current visit: Yes Status: Acute Qualifiers: Urinary tract infection type: acute pyelonephritis Qualified Code(s): N10 - Acute pyelonephritis Category: Medical Code(s): N39.0 - Urinary tract infection, site not specified (3) Sepsis Current visit: Yes Status: Acute Qualifiers: Sepsis type: sepsis due to unspecified organism Qualified Code(s): A41.9 - Sepsis, unspecified organism Category: Medical Code(s): A41.9 - Sepsis, unspecified organism (4) Hypokalemia Current visit: Yes Status: Acute Category: Medical Code(s): E87.6 - Hypokalemia (5) Elevated alkaline phosphatase level Current visit: Yes Status: Acute Category: Medical Code(s): R74.8 - Abnormal levels of other serum enzymes (6) Anemia Current visit: Yes Status: Acute Category: Medical Code(s): D64.9 - Anemia, unspecified (7) Urinary tract infection, E. coli Current visit: Yes Status: Acute Category: Medical Code(s): N39.0 - Urinary tract infection, site not specified; B96.20 - Unspecified Escherichia coli [E. coli] as the cause of diseases classified elsewhere (8) Bacteremia due to Escherichia coli Current visit: Yes Status: Acute Category: Medical Code(s): R78.81 - Bacteremia (9) Thrombocytosis Current visit: Yes Status: Acute Category: Medical Code(s): D47.3 - Essential (hemorrhagic) thrombocythemia
[2019-04-27 12:12] LABS: Hemoglobin 8.6 g/dL (12.2-16.2)
--- NOTE | 2019-04-27 14:25 | Pharmacy Consult Notes ---
[facility] Pharmacy VTE Monitoring - Patient Demographics Admission date: 04/26/19 Report Date: 04/27/19 Time: 14:25 Allergies/Adverse Reactions: Patient Allergies Pertussis Vaccines Allergy (Mild, Verified 04/26/19 14:40) Hives calcium [From DHEA] Allergy (Verified 04/26/19 14:40) calcium carbonate [From DHEA] Allergy (Verified 04/26/19 14:40) ciprofloxacin [From Cipro] Allergy (Verified 04/26/19 14:40) escoto ibuprofen [From Motrin] Allergy (Verified 04/26/19 14:40) Hives Penicillins Allergy (Verified 04/26/19 14:40) Hives prasterone (DHEA) [From DHEA] Allergy (Verified 04/26/19 14:40) sumatriptan [From Imitrex] Allergy (Verified 04/26/19 14:40) Hives Height: 1.52 m Weight: 96.218 kg Patient Problems: Current Active Problems (Updated 04/27/19 @ 09:16 by Jb Gonzales MD) UTI (urinary tract infection) (Acute) Sepsis (Acute) Obesity (Acute) Hypokalemia (Acute) Elevated alkaline phosphatase level (Acute) Anemia (Acute) - VTE Risk Labs: VTE Related Lab Results Hgb 8.6 g/dL (12.2-16.2) L D 04/27/19 06:00 Hct 28.4 % (37.0-47.0) L 04/27/19 06:00 Plt Count 451 K/mm3 (142-424) H D 04/27/19 06:00 BUN 7 mg/dL (7-18) D 04/27/19 06:00 Creatinine 0.90 mg/dL (0.55-1.02) 04/27/19 06:00 Estimated Creat Clear 62 mL/min (50-200) 04/27/19 06:00 Was VTE Risk Assessment Performed: Yes VTE Score: 5 VTE Risk Level: Low Risk - Prophylaxis VTE Prophylaxis Ordered?: Yes Types of VTE Prophylaxis: TEDS Knee High Location of Applied Device: Bilateral Lower Extremeties
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
== END 2019-04-28 10:57 | disposition home or self-care (01) | DRG 872 ==
LOC: 2ND 15:15 → ER 15:15 → OBSVTOIN 18:31 → 2ND 18:32
PROVIDERS: ADMIT Internal Medicine Adolescent Medicine; ATTEND Emergency Medicine
CPT/HCPCS: J2405

== ENCOUNTER → 2019-04-29 17:50 | Outpatient (CLI) | payer OTHER, SELFPAY ==
[2019-04-29 19:15] LABS: Basophils # 0.1 K/mm3 (0-0.2); Basophils % 0.4 % (0.1-2.0); Eosinophils # 0.1 K/mm3 (0.0-0.4); Eosinophils % 0.4 % (0.1-12.0); Hematocrit 33.2 % (37.0-47.0); Lymphocytes # 3.3 K/mm3 (0.7-4.5); Lymphocytes % 13.7 % (10-50); Mean Corpuscular HGB Conc 30.2 g/dL (31.8-35.4); Mean Corpuscular Hemoglobin 29.7 pg (27.0-31.2); Mean Corpuscular Volume 98.4 fl (81-99); Mean Platelet Volume 9.7 fl (7.4-10.4); Monocytes # 0.8 K/mm3 (0.1-1.0); Monocytes % 3.1 % (1.7-9.3); Neutrophils # 20.1 K/mm3 (1.8-7.8); Neutrophils % 82.4 % (37.0-80.0); Platelet Count 596 K/mm3 (142-424); Red Blood Count 3.38 M/mm3 (4.20-5.40); White Blood Count 24.3 K/mm3 (4.8-10.8)
[2019-04-29 19:17] LABS: MANUAL DIFFERENTIAL MANUAL DIFFERENTIAL (MANUAL DIFF)
[2019-04-29 19:36] LABS: Hypochromasia 1+; Lymphocytes % 5 % (10-50); Neutrophils % 84 % (42-76); Platelet Estimate Moderate Increase; Polychromasia 1+; Total Cells Counted 100
== END ==
PROVIDERS: Visit Provider Emergency Medicine
DX: A41.9 Sepsis, unspecified organism (principal)
CPT/HCPCS: 85007; 85025

== ENCOUNTER 2019-04-30 13:13 | Outpatient (CLI) | payer OTHER, SELFPAY ==
[2019-04-30 13:54] VITALS: BP 115/80; PULSE 82; RESP 16; O2SAT 98
--- NOTE | 2019-04-30 13:56 | PC.NURSE ---
Pt stated she rec'd an IM injection in the office yesterday and would prefer that over an IV to receive her antibiotics. Notified Patricia Snider pharmacist and Dr. Gonzales, rec'd NO's to change to rocephin IM.
[2019-04-30 14:00] VITALS: BP 115/80; PULSE 82; RESP 16; O2SAT 98
== END 2019-04-30 14:00 | disposition home or self-care (01) ==
LOC: INF 13:14
PROVIDERS: PCP Emergency Medicine; Visit Provider Emergency Medicine
DX: R78.81 Bacteremia (principal)
CPT/HCPCS: 96372

== ENCOUNTER 2019-05-01 12:35 | Outpatient (CLI) | payer OTHER, SELFPAY | END 2019-05-01 13:07 | disposition home or self-care (01) | LOC: INF 12:36 | PROVIDERS: PCP Emergency Medicine; Visit Provider Emergency Medicine | DX: R78.81 Bacteremia (principal) | CPT/HCPCS: 96372 ==

== ENCOUNTER → 2019-08-15 09:59 | Outpatient (CLI) | payer OTHER, SELFPAY ==
--- NOTE | 2019-08-15 10:03 | XR_ITS ---
PROCEDURE: XR HIP BI W PEL1V CLINICAL INDICATION: pain Low back pain and bilateral hip pain COMPARISON: No exams were available for comparison FINDINGS: No fracture or dislocation is evident. No significant degenerative change. No lytic or blastic change. Unremarkable soft tissues.. Incidental note made of an os acetabulum on the right as a normal variant. IMPRESSION: Negative bilateral hips Dictated by: Marcello Medrano MD 08/15/2019 10:57 Electronically signed by Marcello Medrano MD in [place] 08/15/2019 10:57
== END ==
PROVIDERS: PCP Nurse Practitioner Family; Visit Provider Nurse Practitioner Family
DX: M25.551 Pain in right hip (principal); M25.552 Pain in left hip
CPT/HCPCS: 73521

== ENCOUNTER → 2020-03-05 13:35 | Outpatient (CLI) | payer OTHER, SELFPAY ==
[2020-03-05 14:26] LABS: Chloride 110 mmol/L (98-107); Potassium 4.4 mmoL/L (3.5-5.1); Sodium 140 mmol/L (136-145)
[2020-03-05 14:29] LABS: Alanine Aminotransferase 23 U/L (12-78); Albumin Level 3.5 g/dl (3.5-5.0); Albumin/Globulin Ratio 1.3 (1.1-1.8); Alkaline Phosphatase 97 U/L (38-126); Anion Gap 7.4 mEq/L (5-15); Aspartate Amino Transferase 27 U/L (14-36); Bilirubin,Total 0.2 mg/dl (0.2-1.3); Blood Urea Nitrogen 17 mg/dl (7-17); Calcium 8.8 mg/dl (8.4-10.2); Carbon Dioxide 27 mmol/L (22.0-30.0); Estimated Glomerular Filt Rate 112 ml/min (>60); GFR (African American) 136 ML/MIN (>60); Globulin 2.6 g/dL (1.3-3.2); Glucose 91 mg/dl (74-100); Total Protein,Serum 6.1 g/dl (6.3-8.2)
[2020-03-05 14:59] LABS: Basophils # 0.1 K/mm3 (0-0.2); Basophils % 0.4 % (0.1-2.0); Eosinophils # 0.3 K/mm3 (0.0-0.4); Eosinophils % 2.3 % (0.1-12.0); Hematocrit 34.1 % (37.0-47.0); Hemoglobin 10.4 g/dL (12.2-16.2); Lymphocytes # 3.1 K/mm3 (0.7-4.5); Lymphocytes % 20.5 % (10-50); Mean Corpuscular HGB Conc 30.6 g/dL (31.8-35.4); Mean Corpuscular Hemoglobin 30.4 pg (27.0-31.2); Mean Corpuscular Volume 99.4 fl (81-99); Mean Platelet Volume 9.4 fl (7.4-10.4); Monocytes # 0.8 K/mm3 (0.1-1.0); Monocytes % 5.4 % (1.7-9.3); Neutrophils # 10.8 K/mm3 (1.8-7.8); Neutrophils % 71.5 % (37.0-80.0); Platelet Count 359 K/mm3 (142-424); Red Blood Count 3.43 M/mm3 (4.20-5.40); Red Cell Distribution Width 16.1 % (11.5-17.5); White Blood Count 15.1 K/mm3 (4.8-10.8)
[2020-03-05 15:05] LABS: MANUAL DIFFERENTIAL MANUAL DIFFERENTIAL (MANUAL DIFF)
[2020-03-05 16:45] LABS: Eosinophils % 1 % (0-3); Lymphocytes % 20 % (10-50); Monocytes % 6 % (2-9); Neutrophils % 73 % (42-76); RBC Morphology Normal; Total Cells Counted 100
[2020-03-05 16:46] LABS: Platelet Estimate Slight Increase
[2020-03-06 09:32] LABS: Hep A Ab, IgM Negative (Negative); Hepatitis B Core Antibody IgM Negative (Negative); Hepatitis B Surface Antigen Negative (Negative)
[2020-03-06 15:23] LABS: HIV Screen 4th Generation wRfx Non Reactive (Non Reactive); Hepatitis C Antibody <0.1 s/co ratio (0.0-0.9)
== END ==
PROVIDERS: Visit Provider Emergency Medicine
DX: K52.9 Noninfective gastroenteritis and colitis, unspecified (principal); Z86.79 Personal history of other diseases of the circulatory system; Z77.21 Contact with and (suspected) exposure to potentially hazardous body fluids
CPT/HCPCS: 80053; 80074; 85007; 85025; 86703; G0432

== ENCOUNTER → 2020-06-08 09:45 | Outpatient (CLI) | payer OTHER, SELFPAY ==
--- NOTE | 2020-06-08 09:46 | MR_ITS ---
PROCEDURE: MR CERVICAL SPINE WO CON CLINICAL INDICATION: neck pain NECK PAIN. BILATERAL ARM PAIN, NUMBNESS, AND TINGLING X4YRS. NO INJURY. HEADACHE. NO PRIOR. COMPARISON: No exams were available for comparison TECHNIQUE: Standard multiplanar multiecho sequences are performed without contrast. 3-D MIP and myelographic images are also rendered and reviewed FINDINGS: There is straightening of the cervical lordosis. There is generalized motion artifact which does decrease detail. Craniocervical junction has an unremarkable appearance. C2-C3: Unremarkable. C3-C4: Unremarkable. C4-C5: Mild degenerative disc disease with minimal bulging disc and minimal uncovertebral hypertrophy with bilateral lateral recess and foraminal narrowing and narrowing of the canal at 10 mm C5-C6 mild uncovertebral hypertrophy with mild bilateral lateral recess and foraminal narrowing. C6-C7: There is a small broad-based central disc protrusion slightly eccentric to the right. This is causing moderate canal stenosis with some impingement upon and flattening of the cord anteriorly on the right. Uncovertebral hypertrophy is present with mild bilateral lateral recess narrowing C7-T1: Unremarkable. T1-T2: Degenerative disc disease IMPRESSION: 1. C4-C5: Mild degenerative disc disease with minimal bulging disc and minimal uncovertebral hypertrophy with bilateral lateral recess and foraminal narrowing and narrowing of the canal at 10 mm 2. C5-C6 mild uncovertebral hypertrophy with mild bilateral lateral recess and foraminal narrowing. 3. C6-C7: There is a small broad-based central disc protrusion slightly eccentric to the right. This is causing moderate canal stenosis with some impingement upon and flattening of the cord anteriorly on the right. Uncovertebral hypertrophy is present with mild bilateral lateral recess narrowing Dictated by: Marcello Medrano MD 06/09/2020 08:25 Marcello Medrano MD in [place] 06/09/2020 08:25
== END ==
PROVIDERS: PCP Emergency Medicine; Visit Provider Emergency Medicine
DX: M54.2 Cervicalgia (principal)
CPT/HCPCS: 72141; 76376

== ENCOUNTER → 2020-06-15 17:44 | Outpatient (CLI) | payer OTHER, SELFPAY | PROVIDERS: Visit Provider Emergency Medicine | DX: M54.5 Low back pain (principal) | CPT/HCPCS: 87086 ==

== ENCOUNTER → 2020-06-25 12:38 | Outpatient (CLI) | payer OTHER, SELFPAY ==
--- NOTE | 2020-06-25 12:39 | MR_ITS ---
PROCEDURE: MR HEAD/BRAIN WO CON CLINICAL INDICATION: headaches Pt c/o hx of migraines with n/v. COMPARISON: MR MR CERVICAL SPINE WO CON from 06/08/2020 TECHNIQUE: Routine multiplanar multi echo sequences are performed without gadolinium enhancement. FINDINGS: Midline shift, mass effect, intracranial hemorrhage, or hydrocephalus is evident. There are a few periventricular and subcortical T2 white matter hyperintensities present. These are without restricted diffusion and may be due to ischemic gliotic foci sequela from migraine headache, or demyelinating process. No corpus callosum ule abnormalities are evident. The cerebellopontine angles, cerebellum, and brainstem has an unremarkable appearance. The pituitary, optic chiasm, corpus callosum, and craniocervical junction are unremarkable. No mastoid effusion or sinus air-fluid level. IMPRESSION: 1. No acute intracranial finding. 2. There are few nonspecific periventricular and subcortical T2 white matter hyperintensities. These may be seen with ischemic gliotic changes from small vessel disease, sequela from migraine headache, or demyelinating process. Correlation with clinical parameters needed Dictated by: Marcello Medrano MD 06/26/2020 12:03 Marcello Medrano MD in [place] 06/26/2020 12:03
== END ==
PROVIDERS: PCP Emergency Medicine; Visit Provider Specialist
DX: G43.109 Migraine with aura, not intractable, without status migrainosus (principal)
CPT/HCPCS: 70551

== ENCOUNTER → 2020-07-27 12:44 | Outpatient (CLI) | payer OTHER, SELFPAY ==
--- NOTE | 2020-08-01 08:44 | PC.NURSE ---
PATIENT RECEIVED HOME SLEEP TESTING DEVICE - RETURNED DEVICE THE FOREHEAD SENSOR WAS MISSING AND NOT ENOUGH SLEEP DATA RECORDED - NO CHARGE TO PATIENT.
== END ==
PROVIDERS: PCP Emergency Medicine; Visit Provider Specialist
DX: G43.109 Migraine with aura, not intractable, without status migrainosus (principal); G47.00 Insomnia, unspecified; G47.30 Sleep apnea, unspecified; R06.83 Snoring

== ENCOUNTER → 2020-09-14 15:26 | Outpatient (CLI) | payer OTHER, SELFPAY ==
[2020-09-14 16:08] LABS: Basophils # 0.1 K/mm3 (0-0.2); Basophils % 0.4 % (0.1-2.0); Eosinophils # 0.1 K/mm3 (0.0-0.4); Eosinophils % 1.1 % (0.1-12.0); Hematocrit 43.2 % (37.0-47.0); Hemoglobin 13.7 g/dL (12.2-16.2); Lymphocytes # 2.9 K/mm3 (0.7-4.5); Lymphocytes % 22.1 % (10-50); Mean Corpuscular HGB Conc 31.6 g/dL (31.8-35.4); Mean Corpuscular Volume 101.1 fl (81-99); Mean Platelet Volume 10.2 fl (7.4-10.4); Monocytes # 0.7 K/mm3 (0.1-1.0); Monocytes % 5.5 % (1.7-9.3); Neutrophils # 9.3 K/mm3 (1.8-7.8); Neutrophils % 70.9 % (37.0-80.0); Platelet Count 335 K/mm3 (142-424); Red Blood Count 4.28 M/mm3 (4.20-5.40); Red Cell Distribution Width 14.9 % (11.5-17.5)
== END ==
PROVIDERS: Visit Provider Emergency Medicine
DX: D64.9 Anemia, unspecified (principal); D72.829 Elevated white blood cell count, unspecified
CPT/HCPCS: 85025